=== PATIENT | female | born 1940 | race Caucasian/White ===

== ENCOUNTER → 2018-04-28 | Outpatient (CLI) | payer MEDICARE, BC ==
--- NOTE | 2018-04-28 15:06 | XR ---
EXAMINATION TYPE: XR chest 2V DATE OF EXAM: 04/28/2018 COMPARISON: 01/15/2018 HISTORY: Cough and congestion TECHNIQUE: Frontal and lateral views of the chest are obtained. FINDINGS: Linear platelike left basilar atelectasis is present near the costophrenic angle. There is no focal air space opacity, pleural effusion, or pneumothorax seen. The cardiac silhouette size is within normal limits. The osseous structures are intact. Cholecystectomy clips are noted within the right upper quadrant. There is eventration of the right hemidiaphragm incidentally seen. IMPRESSION: Minimal linear left basilar subsegmental atelectasis otherwise no acute cardiopulmonary process.
== END | disposition home or self-care (01) ==
LOC: RADXRMAIN 12:28
PROVIDERS: ATTEND Internal Medicine
DX: J98.11 Atelectasis (principal)
CPT/HCPCS: 71046

== ENCOUNTER → 2018-06-10 | Outpatient (CLI) | payer MEDICARE, BC ==
--- NOTE | 2018-06-10 14:00 | US ---
EXAMINATION TYPE: US venous doppler duplex LE BI DATE OF EXAM: 06/10/2018 1:50 PM COMPARISON: NONE CLINICAL HISTORY: hilario Lower Limb Pain M79.662 M79.661. SIDE PERFORMED: 03/30/2013 TECHNIQUE: The lower extremity deep venous system is examined utilizing real time linear array sonog amena with graded compression, doppler sonography and color-flow sonography. VESSELS IMAGED: External Iliac Vein (EIV) Common Femoral Vein Deep Femoral Vein Greater Saphenous Vein * Femoral Vein Popliteal Vein Small Saphenous Vein * Proximal Calf Veins (* superficial vessels) Right Leg: Negative for DVT Left Leg: Negative for DVT Office was notified of the results at the time of imaging. IMPRESSION: 1. Bilateral Lower extremity ultrasound negative for deep venous thrombosis.
== END ==
LOC: RADUSWWP 13:06
PROVIDERS: ATTEND Internal Medicine
DX: M79.661 Pain in right lower leg (principal); M79.662 Pain in left lower leg
CPT/HCPCS: 93970

== ENCOUNTER 2018-09-01 20:50 | Emergency (ER) | payer MEDICARE, BC ==
--- NOTE | 2018-09-01 21:39 | ED ---
Chest Pain HPI - General Chief Complaint: Recheck/Abnormal Lab/Rx Stated Complaint: High Blood Pressure Time Seen by Provider: 09/01/18 21:01 Source: patient Mode of arrival: ambulatory Limitations: no limitations - History of Present Illness Initial Comments: This patient is a 78-year-old woman who presents to be evaluated for some mild chest tightness that developed in the evening while she was cooking. Patient states that this led her to check her blood pressure which she states was in the neighborhood of 200. She took a Xanax, but as she was not immediately feeling back to normal she felt she should be evaluated here. The patient denies niyah pain. No dyspnea, diaphoresis, nausea or vomiting, palpitations, lightheadedness or syncope. Patient states that she did have a stress test about 2 years ago that she was told was okay. Patient denies any previous history of coronary artery disease. She denies significant family history of ca rdiac disease, and she does not have any history of smoking. MD Complaint: chest pain -: hour(s) Onset: other (While cooking) Pain Location: substernal Pain Radiation: none Severity: mild Quality: tightness Consistency: constant Improves With: nothing Worsens With: nothing Treatments Prior to Arrival: other (Xanax) - Related Data Home Medications Medication Instructions Recorded Confirmed ALPRAZolam [Xanax] 0.25 mg PO HS 01/16/18 09/01/18 Ascorbic Acid [Vitamin C] 1,000 mg PO DAILY 09/01/18 09/01/18 Carvedilol [Coreg] 6.25 mg PO BID 09/01/18 09/01/18 Levothyroxine Sodium [Synthroid] 25 mcg PO DAILY 09/01/18 09/01/18 Multivitamins, Thera [Multivitamin 1 tab PO DAILY 09/01/18 09/01/18 (formulary)] Naproxen Sodium [Aleve] 220 mg PO Q12H PRN 09/01/18 09/01/18 Olmesartan Medoxomil 40 mg PO DAILY@1300 09/01/18 09/01/18 Turmeric Root Extract [Turmeric] 500 mg PO DAILY 09/01/18 09/01/18 Ubidecarenone [Co Q-10] 100 mg PO DAILY 09/01/18 09/01/18 Previous Rx's Medication Instructions Recorded Aspirin 81 mg PO DAILY chew 01/17/18 Allergies Allergy/AdvReac Type Severity Reaction Status Date / Time levofloxacin [From Levaquin] Allergy Swelling Verified 09/01/18 22:52 metronidazole [From Flagyl] Allergy Swelling Verified 09/01/18 22:52 Sulfa (Sulfonamide Allergy Swelling Verified 09/01/18 22:52 Antibiotics) Review of Systems ROS Statement: Those systems with pertinent positive or pertinent negative responses have been documented in the HPI. ROS Other: All systems not noted in ROS Statement are negative. Constitutional: Denies: fever, weakness Respiratory: Denies: cough, dyspnea Cardiovascular: Reports: as per HPI, chest pain. Denies: palpitations, dyspnea on exertion, orthopnea, edema, syncope Gastrointestinal: Denies: abdominal pain, nausea, vomiting Musculoskeletal: Denies: back pain Skin: Denies: rash Neurological: Denies: headache, weakness, numbness Psychiatric: Reports: anxiety EKG Findings - EKG Comments: EKG Findings:: The comparison EKG from 01/15/2018 is unchanged. - EKG Results: EKG: interpreted by GALILEA, sinus rhythm (Rate 63 bpm), normal axis, normal ST/T - TN, Pacemaker, Normal: Myocardial infarction: inferior TN (old age indeterminate) (There is possible old inferior infarct, with Q waves in 3 and aVF.) Past Medical History Past Medical History: Hyperlipidemia, Hypertension, Thyroid Disorder Additional Past Medical History / Comment(s): irregular heartbeat, factor V,divertculitis,anxiety History of Any Multi-Drug Resistant Organisms: None Reported Past Surgical History: Section, Cholecystectomy Additional Past Surgical History / Comment(s): 2 - c sections, cataract surgery Past Anesthesia/Blood Transfusion Reactions: No Reported Reaction Past Psychological History: Anxiety Smoking Status: Never smoker Past Alcohol Use History: Rare Past Drug Use History: None Reported - Past Family History Father Family Medical History: Cancer Additional Family Medical History / Comment(s): lung and prostate cancer Mother Additional Family Medical History / Comment(s): brain tumor General Exam Limitations: no limitations General appearance: alert, in no apparent distress Head exam: Present: atraumatic, normocephalic Eye exam: Present: normal appearance. Absent: scleral icterus, conjunctival injection Respiratory exam: Present: normal lung sounds bilaterally. Absent: respiratory distress, wheezes, rales, rhonchi, stridor Cardiovascular Exam: Present: regular rate, normal rhythm, normal heart sounds. Absent: systolic murmur, diastolic murmur, rubs, gallop GI/Abdominal exam: Present: soft. Absent: distended, tenderness, guarding, rebound, rigid, mass Extremities exam: Present: normal inspection, normal capillary refill. Absent: pedal edema, calf tenderness Back exam: Present: normal inspection. Absent: CVA tenderness (R), CVA tenderness (L) Neurological exam: Present: alert Skin exam: Present: warm, dry, intact, normal color. Absent: rash Course Vital Signs 09/01/18 09/01/18 09/01/18 20:56 21:52 22:10 Temperature 98.4 F Pulse Rate 68 58 L 58 L Respiratory 18 12 13 Rate Blood Pressure 161/71 165/64 165/64 O2 Sat by Pulse 97 97 Oximetry 09/01/18 09/01/18 09/01/18 22:20 22:50 23:10 Temperature Pulse Rate 59 L 72 62 Respiratory 15 16 16 Rate Blood Pressure 138/67 129/86 132/80 O2 Sat by Pulse 95 96 97 Oximetry Disposition Clinical Impression: Chest pain Disposition: HOME SELF-CARE Condition: Good Instructions (If sedation given, give patient instructions): Chest Pain (ED) Is patient prescribed a controlled substance at d/c from ED?: No Referrals: Héctor Purcell MD [Primary Care Provider] - 1-2 days
[2018-09-01 22:03] LABS: Basophils # (A) 0.1 k/uL (0-0.2); Basophils % (A) 1 %; Eosinophils # (A) 0.1 k/uL (0-0.7); Eosinophils % (A) 3 %; HCT 36.7 % (34.0-46.0); HGB 12.2 gm/dL (11.4-16.0); Lymphocytes # (A) 1.8 k/uL (1.0-4.8); Lymphocytes % (A) 30 %; MCH 31.2 pg (25.0-35.0); MCHC 33.3 g/dL (31.0-37.0); MCV 93.7 fL (80.0-100.0); Mean Platelet Volume 6.6; Monocytes # (A) 0.3 k/uL (0-1.0); Monocytes % (A) 5 %; Neutrophils # (A) 3.4 k/uL (1.3-7.7); Neutrophils % (A) 58 %; Platelet Count 269 k/uL (150-450); RBC 3.92 m/uL (3.80-5.40); RDW 13.1 % (11.5-15.5); WBC 5.9 k/uL (3.8-10.6)
--- NOTE | 2018-09-01 22:08 | XR ---
EXAMINATION: XR chest 2V DATE AND TIME: 09/01/2018 9:57 PM CLINICAL INDICATION: Chest Pain TECHNIQUE: Departmental protocol COMPARISON: 04/28/2018 FINDINGS: The lungs are clear. The pleural spaces are negative. The cardiac silhouette is mildly enlarged. The remainder of the mediastinal silhouette is unremarkabl e. The skeletal structures and soft tissues are negative for acute findings. IMPRESSION: NO ACUTE PROCESS.
[2018-09-01 22:21] LABS: Calcium 9.3 mg/dL (8.4-10.2); Potassium 3.8 mmol/L (3.5-5.1); Total Bilirubin 0.4 mg/dL (0.2-1.3); Total Protein 6.7 g/dL (6.3-8.2)
--- NOTE | 2018-09-01 23:11 | CT ---
EXAM: CT Angiography Chest With Intravenous Contrast CLINICAL HISTORY: Pain TECHNIQUE: Axial computed tomographic angiography images of the chest with intravenous contrast using pulmonary embolism protocol. CTDI is 0.085, 0. 085, 1.5, 1.5, 1.5, 6.4 mGy and DLP is 246.8 mGy-cm. This CT exam was performed using one or more of the following dose reduction techniques: automated exposure control, adjustment of the mA and/or kV according to patient size, and/or use of iterative reconstruction technique. MIP reconstructed images were created and reviewed. COMPARISON: No relevant prior studies available. FINDINGS: Pulmonary arteries: Unremarkable. No pulmonary embolism. Aorta: No acute findings. No thoracic aortic aneurysm. Lungs: Dependent atelectasis. No mass. Pleural space: Unremarkable. No significant effusion. No pneumothorax. Heart: Coronary artery calcifications. No significant pericardial effusion. No evidence of RV dysfunction. Bones/joints: No acute fracture. No dislocation. Soft tissues: Unremarkable. Lymph nodes: Unremarkable. No enlarged lymph nodes. IMPRESSION: No acute findings.
--- NOTE | 2018-09-02 00:12 | US ---
EXAM: US Duplex Left Lower Extremity Veins CLINICAL HISTORY: Pain TECHNIQUE: Real-time duplex ultrasound scan of the left lower extremity veins integrating B-mode two-dimensional vascular structure, Doppler spectral analysis, color flow Doppler imaging and compression. COMPARISON: No relevant prior studies available. FINDINGS: Deep veins: Unremarkable. No DVT in the visualized common femoral, femoral, proximal deep femoral or popliteal veins. The veins demonstrate normal color flow, are normally compressible, with normal phasic flow and/or augmentation response. Superficial veins: Unremarkable. No thrombus in the visualized great saphenous vein. Soft tissues: Holden cyst within the left popliteal fossa measuring 4.2 x 2.2 x 1.3 cm. IMPRESSION: 1. No evidence of deep vein thrombosis. 2. Holden cyst within the left popliteal fossa measuring 4.2 x 2.2 x 1.3 cm.
[2018-09-02 00:32] VITALS: BP 136/65; PULSE 58; RESP 14; TEMP 98
== END 2018-09-02 00:29 | disposition home or self-care (01) ==
LOC: EC 20:50
DX: R07.89 Other chest pain (principal); I10 Essential (primary) hypertension; E07.9 Disorder of thyroid, unspecified; F41.9 Anxiety disorder, unspecified; Z88.1 Allergy status to other antibiotic agents; Z88.2 Allergy status to sulfonamides; Z79.890 Hormone replacement therapy; Z79.899 Other long term (current) drug therapy
CPT/HCPCS: 36415; 93005; 85379; 80053; 83735; 84484; 85025; 71046; 93971; 71275; 99284; Q9967

== ENCOUNTER 2018-10-17 13:19 | Emergency (ER) | payer MEDICARE, BC ==
[2018-10-17 13:24] VITALS: RESP 18
--- NOTE | 2018-10-17 13:44 | ED ---
Lower Extremity Injury HPI - General Chief Complaint: Extremity Injury, Lower Stated Complaint: lt foot toe injury Time Seen by Provider: 10/17/18 13:26 Source: patient, RN notes reviewed Mode of arrival: ambulatory Limitations: no limitations - History of Present Illness Initial Comments: This is a 78-year-old female presents emergency Department with chief complaint of left foot toe injury. Patient states that she caught her foot in her family states that she hobbled a few times and twisted her toe. Patient states is so painful today. Patient states her some bruising noted of the second digit which she also has pain over the third digit. Denies any prior fractures no paresthesias denies any proximal forearm ankle tenderness. - Related Data Home Medications Medication Instructions Recorded Confirmed ALPRAZolam [Xanax] 0.25 mg PO HS 01/16/18 09/01/18 Ascorbic Acid [Vitamin C] 1,000 mg PO DAILY 09/01/18 09/01/18 Carvedilol [Coreg] 6.25 mg PO BID 09/01/18 09/01/18 Levothyroxine Sodium [Synthroid] 25 mcg PO DAILY 09/01/18 09/01/18 Multivitamins, Thera [Multivitamin 1 tab PO DAILY 09/01/18 09/01/18 (formulary)] Naproxen Sodium [Aleve] 220 mg PO Q12H PRN 09/01/18 09/01/18 Olmesartan Medoxomil 40 mg PO DAILY@1300 09/01/18 09/01/18 Turmeric Root Extract [Turmeric] 500 mg PO DAILY 09/01/18 09/01/18 Ubidecarenone [Co Q-10] 100 mg PO DAILY 09/01/18 09/01/18 Previous Rx's Medication Instructions Recorded Aspirin 81 mg PO DAILY chew 01/17/18 Allergies Allergy/AdvReac Type Severity Reaction Status Date / Time levofloxacin [From Levaquin] Allergy Swelling Verified 10/17/18 13:22 metronidazole [From Flagyl] Allergy Swelling Verified 10/17/18 13:22 Sulfa (Sulfonamide Allergy Swelling Verified 10/17/18 13:22 Antibiotics) Review of Systems ROS Statement: Those systems with pertinent positive or pertinent negative responses have been documented in the HPI. ROS Other: All systems not noted in ROS Statement are negative. Past Medical History Past Medical History: Hyperlipidemia, Hypertension, Thyroid Disorder Additional Past Medical History / Comment(s): irregular heartbeat, factor V,divertculitis,anxiety History of Any Multi-Drug Resistant Organisms: None Reported Past Surgical History: Section, Cholecystectomy Additional Past Surgical History / Comment(s): 2 - c sections, cataract surgery Past Anesthesia/Blood Transfusion Reactions: No Reported Reaction Past Psychological History: Anxiety Smoking Status: Never smoker Past Alcohol Use History: Rare Past Drug Use History: None Reported - Past Family History Father Family Medical History: Cancer Additional Family Medical History / Comment(s): lung and prostate cancer Mother Additional Family Medical History / Comment(s): brain tumor General Exam Limitations: no limitations General appearance: alert, in no apparent distress Head exam: Present: atraumatic, normocephalic, normal inspection Neck exam: Present: normal inspection, full ROM. Absent: tenderness, meningismus, lymphadenopathy Respiratory exam: Present: normal lung sounds bilaterally. Absent: respiratory distress, wheezes, rales, rhonchi, stridor Cardiovascular Exam: Present: regular rate, normal rhythm, normal heart sounds. Absent: systolic murmur, diastolic murmur, rubs, gallop, clicks Extremities exam: Present: other (Left foot there is tenderness the mid foot but primary tenderness over the second digit with ecchymosis noted neurovascular intact there is no ankle tenderness no proximal tib-fib tenderness) Skin exam: Present: warm, dry, intact, normal color. Absent: rash Course Vital Signs 10/17/18 13:22 Temperature 97.9 F Pulse Rate 67 Respiratory 18 Rate Blood Pressure 134/62 O2 Sat by Pulse 99 Oximetry Medical Decision Making - Medical Decision Making 78-year-old female presented for left foot toe injury. X-rays were obtained no acute fracture. Patient has ongoing sprain. Patient continued conservative treatment return parameters were discussed. Disposition Clinical Impression: Sprain of toe, second, left Disposition: HOME SELF-CARE Condition: Stable Instructions (If sedation given, give patient instructions): Foot Sprain (ED) Additional Instructions: Please return to the Emergency Department if symptoms worsen or any other concerns. Is patient prescribed a controlled substance at d/c from ED?: No Referrals: Héctor Purcell MD [Primary Care Provider] - 1-2 days Time of Disposition: 14:18
--- NOTE | 2018-10-17 14:07 | XR ---
EXAMINATION TYPE: XR foot complete LT , 3 VIEWS DATE OF EXAM ORDERED: 10/17/2018 HISTORY: Pain. COMPARISON: None. FINDINGS: No fracture or dislocation is seen. Note is made of a plantar calcaneal spur. IMPRESSION: NO ACUTE OSSEOUS LESION.
[2018-10-17 14:36] VITALS: BP 132/74; PULSE 64; TEMP 98.9
== END 2018-10-17 14:35 | disposition home or self-care (01) ==
LOC: EC 13:19
DX: S93.505A Unspecified sprain of left lesser toe(s), initial encounter (principal); F41.9 Anxiety disorder, unspecified; I10 Essential (primary) hypertension; E07.9 Disorder of thyroid, unspecified; Z79.02 Long term (current) use of antithrombotics/antiplatelets; Z79.890 Hormone replacement therapy; Z79.899 Other long term (current) drug therapy; Z88.1 Allergy status to other antibiotic agents; Z88.2 Allergy status to sulfonamides; X50.1XXA Overexertion from prolonged static or awkward postures, initial encounter
CPT/HCPCS: 99283

== ENCOUNTER 2018-10-20 10:54 | Emergency (ER) | payer MEDICARE, BC ==
[2018-10-20 10:59] VITALS: BP 112/57; PULSE 58; RESP 18; TEMP 98.2
[2018-10-20] MEDS ORDERED: ACETAMINOPHEN TAB 325 MG TAB PO STA (11:06)
--- NOTE | 2018-10-20 11:09 | ED ---
General Adult HPI - General Chief complaint: Fall Stated complaint: rt arm injury Time Seen by Provider: 10/20/18 11:02 Source: patient, RN notes reviewed Mode of arrival: ambulatory Limitations: no limitations - History of Present Illness Initial comments: 78-year-old female presents to the emergency department for a chief complaint of right arm pain. Patient states that she was gardening yesterday. States she went to turn and tripped on a metal lip. States she fell on her right arm. Patient states she has pain from her shoulder down to her wrist. States it does hurt more with movement. Denies any pain in her right hand. Denies hitting her head. Denies any other complaints at this time. Does state she has to leave in an hour for a meeting. Patient has no other complaints at this time including shortness of breath, chest pain, abdominal pain, nausea or vomiting, headache, or visual changes. - Related Data Home Medications Medication Instructions Recorded Confirmed ALPRAZolam [Xanax] 0.25 mg PO HS 01/16/18 09/01/18 Ascorbic Acid [Vitamin C] 1,000 mg PO DAILY 09/01/18 09/01/18 Carvedilol [Coreg] 6.25 mg PO BID 09/01/18 09/01/18 Levothyroxine Sodium [Synthroid] 25 mcg PO DAILY 09/01/18 09/01/18 Multivitamins, Thera [Multivitamin 1 tab PO DAILY 09/01/18 09/01/18 (formulary)] Olmesartan Medoxomil 40 mg PO DAILY@1300 09/01/18 09/01/18 Turmeric Root Extract [Turmeric] 500 mg PO DAILY 09/01/18 09/01/18 Ubidecarenone [Co Q-10] 100 mg PO DAILY 09/01/18 09/01/18 Previous Rx's Medication Instructions Recorded Aspirin 81 mg PO DAILY chew 01/17/18 Allergies Allergy/AdvReac Type Severity Reaction Status Date / Time levofloxacin [From Levaquin] Allergy Swelling Verified 10/20/18 11:31 metronidazole [From Flagyl] Allergy Swelling Verified 10/20/18 11:31 Sulfa (Sulfonamide Allergy Swelling Verified 10/20/18 11:31 Antibiotics) Review of Systems ROS Statement: Those systems with pertinent positive or pertinent negative responses have been documented in the HPI. ROS Other: All systems not noted in ROS Statement are negative. Past Medical History Past Medical History: Hyperlipidemia, Hypertension, Thyroid Disorder Additional Past Medical History / Comment(s): irregular heartbeat, factor V,divertculitis,anxiety History of Any Multi-Drug Resistant Organisms: None Reported Past Surgical History: Section, Cholecystectomy Additional Past Surgical History / Comment(s): 2 - c sections, cataract surgery Past Anesthesia/Blood Transfusion Reactions: No Reported Reaction Past Psychological History: Anxiety Smoking Status: Never smoker Past Alcohol Use History: Rare Past Drug Use History: None Reported - Past Family History Father Family Medical History: Cancer Additional Family Medical History / Comment(s): lung and prostate cancer Mother Additional Family Medical History / Comment(s): brain tumor General Exam Limitations: no limitations General appearance: alert, in no apparent distress Head exam: Present: atraumatic, normocephalic, normal inspection Eye exam: Present: normal appearance, PERRL, EOMI. Absent: scleral icterus, conjunctival injection, periorbital swelling ENT exam: Present: normal exam, mucous membranes moist Neck exam: Present: normal inspection, full ROM. Absent: tenderness, meningismus, lymphadenopathy Respiratory exam: Present: normal lung sounds bilaterally. Absent: respiratory distress, wheezes, rales, rhonchi, stridor Cardiovascular Exam: Present: regular rate, normal rhythm, normal heart sounds. Absent: systolic murmur, diastolic murmur, rubs, gallop, clicks Extremities exam: Present: full ROM (full ROM of the right elbow, shoulder and wrist), normal capillary refill (cap refill < 2 seconds, DP pulse 2+). Absent: tenderness, pedal edema, joint swelling (no significant edema or ecchymosis present.), calf tenderness Course Vital Signs 10/20/18 10:57 Temperature 98.2 F Pulse Rate 58 L Respiratory 18 Rate Blood Pressure 112/57 O2 Sat by Pulse 96 Oximetry Medical Decision Making - Medical Decision Making 78 year old female presents for right arm pain after a fall yesterday. Pain is generalized in nature. No significant right arm tenderness. X-ray shows no acute fracture or dislocation seen in the right radius ulna or humerus. Patient likely has a soft tissue injury. However did discuss follow-up with primary care and orthopedics if symptoms are not improving. Discussed returning here if she has any worsening symptoms. Disposition Clinical Impression: Arm pain, right Disposition: HOME SELF-CARE Condition: Good Instructions (If sedation given, give patient instructions): Arm Pain (ED) Additional Instructions: Please take Motrin and Tylenol for pain. Follow up with primary care in 1-2 days. Return here to the emergency department if you have any worsening symptoms. Is patient prescribed a controlled substance at d/c from ED?: No Referrals: Héctor Purcell MD [Primary Care Provider] - 1-2 days Filippo Leal DO [Doctor of Osteopathic Medicine] - 1-2 days Time of Disposition: 11:55
--- NOTE | 2018-10-20 11:29 | XR ---
EXAMINATION TYPE: XR forearm RT, XR humerus RT DATE OF EXAM: 10/20/2018 CLINICAL HISTORY: Fall with right arm pain. TECHNIQUE: Two views of the right forearm are obtained. 2 views of the right humerus were also obtain ed. COMPARISON: None. FINDINGS: There is no acute fracture or dislocation seen in the right radius or ulna. Olecranon enth esophyte is noted as well as small osteophyte of the coronoid process. The right elbow and wrist join ts appear within normal limits. The overlying soft tissue appears within normal limits. There is no evidence or acute fracture or dislocation of the right humerus. No joint effusion is seen within the elbow. There is diffuse osseous demineralization throughout both examinations. Moderate acromioclavic ular arthropathy is seen. Old healed well-corticated supracondylar fracture is noted. IMPRESSION: There is no acute fracture or dislocation seen in the right radius, ulna, or humerus.
== END 2018-10-20 11:57 | disposition home or self-care (01) ==
LOC: EC 10:54
DX: M79.601 Pain in right arm (principal); I10 Essential (primary) hypertension; E07.9 Disorder of thyroid, unspecified; F41.9 Anxiety disorder, unspecified; Z79.890 Hormone replacement therapy; Z79.899 Other long term (current) drug therapy; Z88.1 Allergy status to other antibiotic agents; Z88.2 Allergy status to sulfonamides; W18.09XA Striking against other object with subsequent fall, initial encounter; Y93.H2 Activity, gardening and landscaping
CPT/HCPCS: 99283

== ENCOUNTER 2018-12-24 14:49 | Emergency (ER) | payer MEDICARE, BC ==
[2018-12-24 14:53] VITALS: RESP 18
[2018-12-24] MEDS ORDERED: SODIUM CHLORIDE 0.9% 1,000 ML IV STA ×2 (15:05)
--- NOTE | 2018-12-24 15:09 | ED ---
Extremity Problem HPI - General Chief complaint: Extremity Problem,Nontraumatic Stated complaint: Possible blood clot Time Seen by Provider: 12/24/18 14:55 Source: patient, RN notes reviewed, old records reviewed Mode of arrival: ambulatory Limitations: no limitations - History of Present Illness Initial comments: Patient is a 78-year-old female presents emergency department today for evaluation with complaints of bilateral posterior calf pain and knee pain. Patient ports that having pain for the past 3 days. Patient states that today she started about some chest pain and shortness of breath. Patient states that she has had a history of factor V disorder. Patient states she's had no history of blood clots or any disease. She is not on any blood thinners. Patient states she's had no history of immobility. She is a nonsmoker. Patient states that she feels like she has pain with taking a deep breath, can't get a full breath. - Related Data Home Medications Medication Instructions Recorded Confirmed ALPRAZolam [Xanax] 0.25 mg PO HS 01/16/18 10/20/18 Ascorbic Acid [Vitamin C] 1,000 mg PO DAILY 09/01/18 10/20/18 Carvedilol [Coreg] 6.25 mg PO BID 09/01/18 10/20/18 Levothyroxine Sodium [Synthroid] 25 mcg PO DAILY 09/01/18 10/20/18 Multivitamins, Thera [Multivitamin 1 tab PO DAILY 09/01/18 10/20/18 (formulary)] Olmesartan Medoxomil 40 mg PO DAILY@1300 09/01/18 10/20/18 Turmeric Root Extract [Turmeric] 500 mg PO DAILY 09/01/18 10/20/18 Ubidecarenone [Co Q-10] 100 mg PO DAILY 09/01/18 10/20/18 Previous Rx's Medication Instructions Recorded Aspirin 81 mg PO DAILY chew 01/17/18 Allergies Allergy/AdvReac Type Severity Reaction Status Date / Time levofloxacin [From Levaquin] Allergy Swelling Verified 12/24/18 14:53 metronidazole [From Flagyl] Allergy Swelling Verified 12/24/18 14:53 Sulfa (Sulfonamide Allergy Swelling Verified 12/24/18 14:53 Antibiotics) Review of Systems ROS Statement: Those systems with pertinent positive or pertinent negative responses have been documented in the HPI. ROS Other: All systems not noted in ROS Statement are negative. Past Medical History Past Medical History: Hyperlipidemia, Hypertension, Thyroid Disorder Additional Past Medical History / Comment(s): irregular heartbeat, factor V,divertculitis,anxiety History of Any Multi-Drug Resistant Organisms: None Reported Past Surgical History: Section, Cholecystectomy Additional Past Surgical History / Comment(s): 2 - c sections, cataract surgery Past Anesthesia/Blood Transfusion Reactions: No Reported Reaction Past Psychological History: Anxiety Smoking Status: Never smoker Past Alcohol Use History: Rare Past Drug Use History: None Reported - Past Family History Father Family Medical History: Cancer Additional Family Medical History / Comment(s): lung and prostate cancer Mother Additional Family Medical History / Comment(s): brain tumor General Exam - General Exam Comments Initial Comments: Is an 78-year-old female. No distress. Limitations: no limitations General appearance: alert, in no apparent distress Head exam: Present: atraumatic, normocephalic, normal inspection Eye exam: Present: normal appearance ENT exam: Present: normal exam, mucous membranes moist Neck exam: Present: normal inspection. Absent: tenderness, meningismus, lymphadenopathy Respiratory exam: Present: normal lung sounds bilaterally. Absent: respiratory distress, wheezes, rales, rhonchi, stridor Cardiovascular Exam: Present: regular rate, normal rhythm, normal heart sounds. Absent: systolic murmur, diastolic murmur, rubs, gallop, clicks GI/Abdominal exam: Present: soft, normal bowel sounds. Absent: distended, tenderness, guarding, rebound, rigid Extremities exam: Present: normal inspection, other (Patient has varicose in the bilateral lower extremities. Patient has evidence of swelling over the medial popliteal fossa.) Back exam: Present: normal inspection Neurological exam: Present: alert, oriented X3, CN II-XII intact Psychiatric exam: Present: normal affect, normal mood Skin exam: Present: warm, dry, intact, normal color. Absent: rash Course Vital Signs 12/24/18 12/24/18 14:51 16:59 Temperature 98.3 F Pulse Rate 65 73 Respiratory 18 18 Rate Blood Pressure 152/62 143/72 O2 Sat by Pulse 99 98 Oximetry Medical Decision Making - Medical Decision Making This is a 78-year-old female. She presents today with complaints of bilateral lower extremity swelling. She is concerned of possible DVT. On questioning she stated she did have some atypical discomfort description of chest pain, pleuritic in with breaths. Patient's EKG shows no acute changes. His troponin is negative. She did have a positive d-dimer. Chest x-ray was negative for any acute process. Vital signs are stable. 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 No evidence of DVT. CT angios. Chest was negative for PE. At this time I discussed admission for atypical chest pain and further workup. Patient that she would prefer pulled out patiently with her primary care physician. I discussed going up with orthopedic for Holden cyst. I'll cautions were answered return parameters were discussed. - Lab Data Result diagrams: 12/24/18 15:37 12/24/18 15:37 Lab Results 12/24/18 12/24/18 12/24/18 Range/Units 15:37 15:37 15:37 WBC 6.3 (3.8-10.6) k/uL RBC 3.85 (3.80-5.40) m/uL Hgb 12.1 (11.4-16.0) gm/dL Hct 36.2 (34.0-46.0) % MCV 94.0 (80.0-100.0) fL MCH 31.3 (25.0-35.0) pg MCHC 33.3 (31.0-37.0) g/dL RDW 13.7 (11.5-15.5) % Plt Count 239 (150-450) k/uL Neutrophils % 61 % Lymphocytes % 26 % Monocytes % 7 % Eosinophils % 2 % Basophils % 1 % Neutrophils # 3.8 (1.3-7.7) k/uL Lymphocytes # 1.7 (1.0-4.8) k/uL Monocytes # 0.4 (0-1.0) k/uL Eosinophils # 0.2 (0-0.7) k/uL Basophils # 0.1 (0-0.2) k/uL PT 9.9 (9.0-12.0) sec INR 0.9 (<1.2) APTT 24.8 (22.0-30.0) sec D-Dimer 1.99 H (<0.60) mg/L FEU Sodium 137 (137-145) mmol/L Potassium 4.0 (3.5-5.1) mmol/L Chloride 102 (98-107) mmol/L Carbon Dioxide 27 (22-30) mmol/L Anion Gap 8 mmol/L BUN 20 H (7-17) mg/dL Creatinine 1.05 H (0.52-1.04) mg/dL Est GFR (CKD-EPI)AfAm 60 (>60 ml/min/1.73 sqM) Est GFR (CKD-EPI)NonAf 52 (>60 ml/min/1.73 sqM) Glucose 90 (74-99) mg/dL Calcium 9.2 (8.4-10.2) mg/dL Magnesium 1.9 (1.6-2.3) mg/dL Total Bilirubin 0.5 (0.2-1.3) mg/dL AST 27 (14-36) U/L ALT 25 (9-52) U/L Alkaline Phosphatase 49 (38-126) U/L Troponin I (0.000-0.034) ng/mL NT-Pro-B Natriuret Pep pg/mL Total Protein 7.3 (6.3-8.2) g/dL Albumin 4.2 (3.5-5.0) g/dL Urine Color Urine Appearance (Clear) Urine pH (5.0-8.0) Ur Specific Whitman (1.001-1.035) Urine Protein (Negative) Urine Glucose (UA) (Negative) Urine Ketones (Negative) Urine Blood (Negative) Urine Nitrite (Negative) Urine Bilirubin (Negative) Urine Urobilinogen (<2.0) mg/dL Ur Leukocyte Esterase (Negative) 12/24/18 12/24/18 12/24/18 Range/Units 15:37 15:37 15:37 WBC (3.8-10.6) k/uL RBC (3.80-5.40) m/uL Hgb (11.4-16.0) gm/dL Hct (34.0-46.0) % MCV (80.0-100.0) fL MCH (25.0-35.0) pg MCHC (31.0-37.0) g/dL RDW (11.5-15.5) % Plt Count (150-450) k/uL Neutrophils % % Lymphocytes % % Monocytes % % Eosinophils % % Basophils % % Neutrophils # (1.3-7.7) k/uL Lymphocytes # (1.0-4.8) k/uL Monocytes # (0-1.0) k/uL Eosinophils # (0-0.7) k/uL Basophils # (0-0.2) k/uL PT (9.0-12.0) sec INR (<1.2) APTT (22.0-30.0) sec D-Dimer (<0.60) mg/L FEU Sodium (137-145) mmol/L Potassium (3.5-5.1) mmol/L Chloride (98-107) mmol/L Carbon Dioxide (22-30) mmol/L Anion Gap mmol/L BUN (7-17) mg/dL Creatinine (0.52-1.04) mg/dL Est GFR (CKD-EPI)AfAm (>60 ml/min/1.73 sqM) Est GFR (CKD-EPI)NonAf (>60 ml/min/1.73 sqM) Glucose (74-99) mg/dL Calcium (8.4-10.2) mg/dL Magnesium (1.6-2.3) mg/dL Total Bilirubin (0.2-1.3) mg/dL AST (14-36) U/L ALT (9-52) U/L Alkaline Phosphatase (38-126) U/L Troponin I <0.012 (0.000-0.034) ng/mL NT-Pro-B Natriuret Pep 56 pg/mL Total Protein (6.3-8.2) g/dL Albumin (3.5-5.0) g/dL Urine Color Colorless Urine Appearance Clear (Clear) Urine pH 5.5 (5.0-8.0) Ur Specific Whitman 1.003 (1.001-1.035) Urine Protein Negative (Negative) Urine Glucose (UA) Negative (Negative) Urine Ketones Negative (Negative) Urine Blood Negative (Negative) Urine Nitrite Negative (Negative) Urine Bilirubin Negative (Negative) Urine Urobilinogen <2.0 (<2.0) mg/dL Ur Leukocyte Esterase Negative (Negative) 12/24/18 16:26 EKG shows sinus bradycardia cardiac, inferior infarct age undetermined. Abnormal EKG. Ventricular rate of 58 bpm. IN interval is 166 ms. QRS duration is 80 ms. QT QTc is 400/392 ms. - Radiology Data Radiology results: report reviewed This x-rays negative for any acute cardio pulmonary process. Right leg is negative for DVT. Evidence of Holden cyst measuring 5.4 x 1.8 x 3.7 cm. Left leg is negative for DVT but there is evidence of a Holden cyst measuring 5.1 x 1.[address] chest was negative for PE. Disposition Clinical Impression: Atypical chest pain, Cyst, Holden's knee Disposition: HOME SELF-CARE Condition: Good Instructions (If sedation given, give patient instructions): Bakers Cyst (ED) Additional Instructions: Patient advised to take Motrin Tylenol for pain. Patient should rest ice and elevate the knees. Patient should follow-up with orthopedic regards to Holden's cyst. Follow-up with her primary care physician in regards to a typical chest pain or further evaluation by cardiology. Is patient prescribed a controlled substance at d/c from ED?: No Referrals: Héctor Purcell MD [Primary Care Provider] - 1-2 days Time of Disposition: 17:56
[2018-12-24 15:48] LABS: Appearance,Urine Clear (Clear); Basophils # (A) 0.1 k/uL (0-0.2); Basophils % (A) 1 %; Bilirubin,Urine Negative (Negative); Blood,Urine Negative (Negative); Color,Urine Colorless; Eosinophils # (A) 0.2 k/uL (0-0.7); Eosinophils % (A) 2 %; Glucose,Urine (UA) Negative (Negative); HCT 36.2 % (34.0-46.0); HGB 12.1 gm/dL (11.4-16.0); Ketones,Urine Negative (Negative); Leukocyte Esterase,Urine Negative (Negative); Lymphocytes # (A) 1.7 k/uL (1.0-4.8); Lymphocytes % (A) 26 %; MCH 31.3 pg (25.0-35.0); MCHC 33.3 g/dL (31.0-37.0); Mean Platelet Volume 6.5; Monocytes # (A) 0.4 k/uL (0-1.0); Monocytes % (A) 7 %; Neutrophils # (A) 3.8 k/uL (1.3-7.7); Neutrophils % (A) 61 %; Nitrite,Urine Negative (Negative); PH, Urine 5.5 (5.0-8.0); Platelet Count 239 k/uL (150-450); Protein,Urine Negative (Negative); RBC 3.85 m/uL (3.80-5.40); RDW 13.7 % (11.5-15.5); Specific Gravity,Urine 1.003 (1.001-1.035); Urobilinogen,Urine <2.0 mg/dL (<2.0); WBC 6.3 k/uL (3.8-10.6)
[2018-12-24 15:56] LABS: Albumin 4.2 g/dL (3.5-5.0); Calcium 9.2 mg/dL (8.4-10.2); Magnesium 1.9 mg/dL (1.6-2.3); Total Bilirubin 0.5 mg/dL (0.2-1.3); Total Protein 7.3 g/dL (6.3-8.2)
--- NOTE | 2018-12-24 15:58 | XR ---
EXAMINATION TYPE: XR chest 2V DATE OF EXAM: 12/24/2018 COMPARISON: 09/01/2018 HISTORY: Chest pain TECHNIQUE: Frontal and lateral views of the chest are obtained. FINDINGS: There is no focal air space opacity, pleural effusion, or pneumothorax seen. The cardiac silhouette size is within normal limits. The osseous structures are intact. Cholecystectomy clips a re seen. IMPRESSION: No acute cardiopulmonary process.
[2018-12-24 16:02] LABS: INR 0.9 (<1.2); Partial Thromboplastin Time 24.8 sec (22.0-30.0); Prothrombin Time 9.9 sec (9.0-12.0)
[2018-12-24 16:17] LABS: D-Dimer 1.99 mg/L FEU (<0.60)
--- NOTE | 2018-12-24 16:31 | US ---
EXAMINATION TYPE: US venous doppler duplex LE BI DATE OF EXAM: 12/24/2018 4:25 PM COMPARISON: Bilateral venous ultrasound June 10, 2018 CLINICAL HISTORY: Pain. Pt states bilateral leg pain and swelling SIDE PERFORMED: Bilateral TECHNIQUE: The lower extremity deep venous system is examined utilizing real time linear array sonog amena with graded compression, doppler sonography and color-flow sonography. VESSELS IMAGED: External Iliac Vein (EIV) Common Femoral Vein Deep Femoral Vein Greater Saphenous Vein * Femoral Vein Popliteal Vein Small Saphenous Vein * Proximal Calf Veins (* superficial vessels) Right Leg: Negative for DVT, Holden's Cyst= 5.4 x 1.8 x 3.7 cm Left Leg: Negative for DVT, Holden's Cyst= 5.1 x 1.7 x 2.8 cm Grayscale, color doppler, spectral doppler imaging performed of the deep veins of the bilateral lower extremities. There is normal flow, compressibility, vascular waveforms. IMPRESSION: No ultrasound evidence for acute DVT in either lower extremity. Documentation of moderat e-sized bilateral popliteal cysts on current study incidentally noted.
--- NOTE | 2018-12-24 17:15 | CT ---
EXAMINATION TYPE: CT chest angio for PE DATE OF EXAM: 12/24/2018 COMPARISON: 09/01/2018 HISTORY: Chest tightness, swollen legs bilaterally CT DLP: 237.3 mGycm Automated exposure control for dose reduction was used. CONTRAST: CT Chest for pulmonary embolism performed with with IV Contrast, patient injected with 80 mL of Isovu e 370. There are 3-D post processed images. FINDINGS: There is coarse interstitial infiltrate in the mid and lower lung foreman. Heart is enlarged. There is no pericardial effusion. Thoracic aorta is intact without evidence of aneurysm or dissection. The as cending aorta measures 3.2 cm. There is 1.5 cm mediastinal lymph node. There are no hilar masses. I see no filling defects in the pulmonary arteries. The bony thorax is intact. I see no bony destruct melanie process. There is a rounded density within the body of the stomach also present on old CT scan an d in same location but slightly smaller. Significance is not clear. This measures 1.2 cm and could be medication. IMPRESSION: No evidence of pulmonary embolism. No adverse change compared to old exam.
[2018-12-24 18:17] VITALS: BP 156/75; PULSE 70; TEMP 98.5
== END 2018-12-24 18:17 | disposition home or self-care (01) ==
LOC: EC 14:49
DX: M71.22 Synovial cyst of popliteal space [Baker], left knee (principal); M71.21 Synovial cyst of popliteal space [Baker], right knee; R07.89 Other chest pain; R06.02 Shortness of breath; I83.93 Asymptomatic varicose veins of bilateral lower extremities; I10 Essential (primary) hypertension; E07.9 Disorder of thyroid, unspecified; F41.9 Anxiety disorder, unspecified; Z88.1 Allergy status to other antibiotic agents; Z88.2 Allergy status to sulfonamides; Z79.890 Hormone replacement therapy; Z79.899 Other long term (current) drug therapy; Z86.2 Personal history of diseases of the blood and blood-forming organs and certain disorders involving the immune mechanism; Z80.1 Family history of malignant neoplasm of trachea, bronchus and lung
CPT/HCPCS: 36415; 93005; 85379; 83880; 80053; 83735; 84484; 85025; 85610; 85730; 81003; 71046; 93970; 71275; 99284; 96360; 96361 ×2; Q9967

== ENCOUNTER 2019-01-29 12:50 | Emergency (ER) | payer MEDICARE, BC ==
[2019-01-29 13:05] VITALS: BP 147/68; PULSE 66; RESP 18; TEMP 98
--- NOTE | 2019-01-29 13:46 | XR ---
EXAMINATION TYPE: XR wrist complete RT , 4 VIEWS DATE OF EXAM ORDERED: 01/29/2019 HISTORY: pain. COMPARISON: None. FINDINGS: A well ossified bony fragment is noted posterior to the lunate. This may relate to previou s trauma. No acute fracture or dislocation is seen. There are degenerative changes present in the fir st carpal metacarpal joint as well as in the interphalangeal joint of IMPRESSION: 1. NO ACUTE OSSEOUS LESION. 2. EVIDENCE OF PREVIOUS TRAUMA. 3. DEGENERATIVE CHANGE.
== END 2019-01-29 13:34 | disposition left against medical advice (07) ==
LOC: EC 12:50
DX: S69.90XA Unspecified injury of unspecified wrist, hand and finger(s), initial encounter (principal); X58.XXXA Exposure to other specified factors, initial encounter; Z53.21 Procedure and treatment not carried out due to patient leaving prior to being seen by health care provider
CPT/HCPCS: 99499

== ENCOUNTER → 2019-03-02 | Outpatient (CLI) | payer MEDICARE, BC ==
--- NOTE | 2019-03-02 16:19 | MR ---
EXAMINATION TYPE: MR knee LT wo con DATE OF EXAM: 03/02/2019 COMPARISON: None HISTORY: Pain in left knee TECHNIQUE: Multiplanar, multisequence imaging of the left knee is performed without IV contrast. FINDINGS: MEDIAL MENISCUS: The medial meniscus is attenuated. Some linear increased signal present within the p osterior horn extending into the attenuated by, findings may be indicative of a chronic tear LATERAL MENISCUS: There is some increased signal present within the posterior horn of the lateral men iscus towards the root however no definite tear identified. CRUCIATE LIGAMENTS: The posterior cruciate ligament is intact and unremarkable. There is abnormal inc reased signal involving the anterior cruciate ligament. There may be intrasubstance ganglion, a parti al tear. COLLATERAL LIGAMENTS: The medial collateral ligament and lateral collateral ligament complex are inta ct and unremarkable. EXTENSOR MECHANISM: Visualized quadriceps and patellar tendons are intact. EFFUSION: Small suprapatellar joint effusion. POPLITEAL CYST: Large semimembranosus gastrocnemius cyst present measuring approximately 5.5 x 2.1 x 1.8 cm. TRICOMPARTMENT SPACES: Joint space loss is greatest in the medial compartment. CARTILAGE: Grade 3 to grade IV chondromalacia in the medial compartment. Grade 2 to grade III chondro malacia in the lateral compartment. BONE MARROW SIGNAL: Reactive marrow signal changes are suspected in the proximal tibia medially as we ll as the medial femoral condyle. OTHER: Subcutaneous fat shows varicosity medially. IMPRESSION: Osteoarthritis and additional findings above.
== END | disposition home or self-care (01) ==
LOC: RADMRIMAIN 14:54
PROVIDERS: ATTEND Internal Medicine
DX: M17.12 Unilateral primary osteoarthritis, left knee (principal); M71.22 Synovial cyst of popliteal space [Baker], left knee; M94.262 Chondromalacia, left knee

== ENCOUNTER → 2019-12-14 | Outpatient (CLI) | payer MEDICARE, BC ==
--- NOTE | 2019-12-14 17:43 | BD ---
EXAMINATION TYPE: Axial Bone Density DATE OF EXAM: 12/14/2019 COMPARISON: 11.26.2011 CLINICAL HISTORY: 79 YR OLD FEMALE.....ICD-10 CODE: N95.1 POST MENOPAUSAL Height: 62.5 Weight: 164 FRAX RISK QUESTIONS: Family History (Parent hip fracture): NO FX Glucocorticoids (More than 3mos): YES (Ex: prednisone, prednisolone, methylprednisolone, dexamethasone, and hydrocortisone). History of Fracture in Adulthood: YES RISK FACTORS HISTORY OF: BROKEN ANKLE AT AGE 78, LAST YR Family History of Osteoporosis: YES, SISTER, NO HIP FX Postmenopausal woman: YES, AT AGE 59 Take estrogen and/or progesterone medications: ONLY FOR A MONTH, NONE NOW Hyperparathyroidism: NO Adrenal Insufficiency: NO MEDICATIONS: Prednisone or other steroids: SINUS AND ASTHMA, STEROIDS AND INHALERS Thyroid Medications: YES, SYNTHROID FOR ABOUT 6 YRS Additional Medications: BP MEDS, XANAX PRN, STATIN FOR CHOLESTEROL, VIT D Additional History: HYPERTENSION, INSOMNIA, CHOLESTEROL EXAM MEASUREMENTS: Bone mineral densitometry was performed using the Flexuspine System. Bone mineral density as measured about the Lumbar spine is: ----- L1-L4(G/cm2): 1.409 T Score Values are as follows: ----- L1: -0.6 ----- L2: 1.9 ----- L3: 3.4 ----- L4: 2.2 ----- L1-L4: 1.9 Bone mineral density has: Increased 16.8% since study of: 11.26.2011 Bone mineral density about the R hip (g/cm2): 0.883 Bone mineral density about the L hip (g/cm2): 0.894 T Score values are as follows: -----R Neck: -1.6 -----L Neck: -1.5 -----R Total: -1.0 -----L Total: -0.9 Bone mineral density has: Decreased -0.1% since study of: 11.26.2011 FRAX%s: THERE IS A 27.6% CHANCE FOR A MAJOR OSTEOPOROTIC FX AND A 6.8% FOR HIP.....PROBABILITY FOR FX IN 10 YRS TIME IMPRESSION: Osteopenia (T Score between -2.5 and -1). There is slightly increased risk of fracture and the patient may be considered for treatment. Re-Screen 2-5 years. NOTE: T-SCORE=SD OF THE YOUNG ADULT MEAN.
--- NOTE | 2020-01-09 10:16 | MM ---
Reason for exam: screening (asymptomatic). Last mammogram was performed 3 years and 7 months ago. History: Patient is postmenopausal. Family history of breast cancer in paternal aunt, breast cancer in maternal aunt, and breast cancer in maternal cousin. Benign US right guided VAD of the right breast, June 18, 2010. Took hormonal contraceptives for 1 year. Physical Findings: A clinical breast exam by your physician is recommended on an annual basis and results should be correlated with mammographic findings. MG 3D Screening Mammo W/Cad Bilateral CC and MLO view(s) were taken. Prior study comparison: May 29, 2016, mammogram, performed at [facility]. April 17, 2015, mammogram, performed at [facility]. May 31, 2010, right breast diagnostic digital jeramie. November 27, 2009, right breast mammogram dig work up. The breast tissue is heterogeneously dense. This may lower the sensitivity of mammography. No significant changes when compared with prior studies. ASSESSMENT: Benign, BI-RAD 2 RECOMMENDATION: Routine screening mammogram of both breasts in 1 year.
== END | disposition home or self-care (01) ==
LOC: RADMAMWWP 13:07
PROVIDERS: ATTEND Internal Medicine
DX: Z12.31 Encounter for screening mammogram for malignant neoplasm of breast (principal); M85.80 Other specified disorders of bone density and structure, unspecified site
CPT/HCPCS: 77063; 77067; 77080

== ENCOUNTER → 2021-02-22 | Outpatient (CLI) | payer MEDICARE, BC ==
--- NOTE | 2021-02-26 11:07 | MM ---
Reason for exam: screening (asymptomatic). Last mammogram was performed 1 year and 2 months ago. History: Patient is postmenopausal. Family history of breast cancer in paternal aunt, breast cancer in maternal aunt, and breast cancer in maternal cousin. Benign US right guided VAD of the right breast, June 18, 2010. Took hormonal contraceptives for 1 year. Physical Findings: A clinical breast exam by your physician is recommended on an annual basis and results should be correlated with mammographic findings. MG 3D Screening Mammo W/Cad Bilateral CC and MLO view(s) were taken. Prior study comparison: December 14, 2019, bilateral MG 3d screening mammo w/cad. May 29, 2016, mammogram, performed at [facility]. No significant changes when compared with prior studies. ASSESSMENT: Benign, BI-RAD 2 RECOMMENDATION: Routine screening mammogram of both breasts in 1 year.
== END | disposition home or self-care (01) ==
LOC: RADMAMWWP 10:45
PROVIDERS: ATTEND Internal Medicine
DX: Z12.31 Encounter for screening mammogram for malignant neoplasm of breast (principal); Z80.3 Family history of malignant neoplasm of breast
CPT/HCPCS: 77063; 77067

== ENCOUNTER 2021-06-06 15:48 | Observation (INO) | payer MEDICARE, BC ==
[2021-06-06] MEDS ORDERED: ASPIRIN 81 MG PO STA (16:54)
[2021-06-06] MEDS ORDERED: NITROGLYCERIN SL TABS 0.4 MG TAB SUBLINGUAL STA (16:54)
--- NOTE | 2021-06-06 16:58 | ED ---
General Adult HPI - General Chief complaint: Shortness of Breath Stated complaint: possible blood clot, sent by PCP Time Seen by Provider: 06/06/21 16:15 Source: patient, RN notes reviewed Mode of arrival: ambulatory Limitations: no limitations - History of Present Illness Initial comments: Patient is a pleasant 81-year-old female presenting to the emergency Department with chest pain and dyspnea. Onset of symptoms was 2 or 3 weeks ago with COVID- 19 infection. Patient has gotten over this however has noticed her symptoms of chest tightness and exertional dyspnea worsening over the past week. Discomfort is moderate at this time. No history of similar symptoms prior to this. No leg pain or leg swelling. Patient does have a history of factor V Leiden. Patient is not on any anti-correlation at this time. No associated nausea or diaphoresis. - Related Data Home Medications Medication Instructions Recorded Confirmed ALPRAZolam [Xanax] 0.5 mg PO BID PRN 01/16/18 06/06/21 Ascorbic Acid [Vitamin C] 1,000 mg PO DAILY 09/01/18 06/06/21 Multivitamins, Thera [Multivitamin 1 tab PO DAILY 09/01/18 06/06/21 (formulary)] Turmeric Root Extract [Turmeric] 500 mg PO DAILY 09/01/18 06/06/21 Ubidecarenone [Co Q-10] 100 mg PO DAILY 09/01/18 06/06/21 carvediloL [Coreg] 6.25 mg PO BID 09/01/18 06/06/21 Baclofen 10 mg PO BID PRN 06/06/21 06/06/21 Cholecalciferol [Vitamin D3 (25 25 mcg PO DAILY 06/06/21 06/06/21 Mcg = 1000 Iu)] Dexamethasone [Decadron] 4 mg PO BID 06/06/21 06/06/21 Furosemide [Lasix] 20 mg PO DAILY 06/06/21 06/06/21 Levothyroxine Sodium [Synthroid] 50 mcg PO DAILY 06/06/21 06/06/21 Potassium Chloride [Klor-Con 10 ER] 10 meq PO DAILY 06/06/21 06/06/21 Rosuvastatin Calcium [Crestor] 5 mg PO DAILY 06/06/21 06/06/21 guaiFENesin-Coden 100-10MG/5ML 10 ml PO Q4H PRN 06/06/21 06/06/21 [Robitussin AC] hydrALAZINE HCL 25 mg PO BID 06/06/21 06/06/21 Allergies Allergy/AdvReac Type Severity Reaction Status Date / Time levofloxacin [From Levaquin] Allergy Swelling Verified 06/06/21 18:14 metronidazole [From Flagyl] Allergy Swelling Verified 06/06/21 18:14 Sulfa (Sulfonamide Allergy Swelling Verified 06/06/21 18:14 Antibiotics) Review of Systems ROS Statement: Those systems with pertinent positive or pertinent negative responses have been documented in the HPI. ROS Other: All systems not noted in ROS Statement are negative. Constitutional: Denies: fever Eyes: Denies: eye pain ENT: Denies: ear pain Respiratory: Reports: as per HPI, dyspnea Cardiovascular: Reports: chest pain Endocrine: Denies: fatigue Gastrointestinal: Denies: abdominal pain Genitourinary: Denies: dysuria Musculoskeletal: Denies: back pain Skin: Denies: rash Neurological: Denies: weakness Past Medical History Past Medical History: Hyperlipidemia, Hypertension, Thyroid Disorder Additional Past Medical History / Comment(s): irregular heartbeat, factor V,divertculitis,anxiety History of Any Multi-Drug Resistant Organisms: None Reported Past Surgical History: Section, Cholecystectomy Additional Past Surgical History / Comment(s): 2 - c sections, cataract surgery Past Anesthesia/Blood Transfusion Reactions: No Reported Reaction Past Psychological History: Anxiety Smoking Status: Never smoker Past Alcohol Use History: Rare Past Drug Use History: None Reported - Past Family History Father Family Medical History: Cancer Additional Family Medical History / Comment(s): lung and prostate cancer Mother Additional Family Medical History / Comment(s): brain tumor General Exam Limitations: no limitations General appearance: alert, in no apparent distress Head exam: Present: normocephalic Eye exam: Present: normal appearance Neck exam: Present: normal inspection Respiratory exam: Present: normal lung sounds bilaterally. Absent: chest wall tenderness Cardiovascular Exam: Present: regular rate, normal rhythm Expanded Peripheral pulses: 2+: Radial (R), Radial (L), Posterior Tibialis (R), Posterior Tibialis (L) GI/Abdominal exam: Present: soft. Absent: tenderness Extremities exam: Present: normal inspection. Absent: pedal edema, calf tenderness Neurological exam: Present: alert Psychiatric exam: Present: normal affect, normal mood Skin exam: Present: normal color Course Vital Signs 06/06/21 06/06/21 06/06/21 16:09 16:18 17:27 Temperature 98.1 F Pulse Rate 65 47 L Respiratory 16 16 16 Rate Blood Pressure 154/69 102/55 O2 Sat by Pulse 99 99 Oximetry 06/06/21 19:26 Temperature Pulse Rate 53 L Respiratory 16 Rate Blood Pressure 160/62 O2 Sat by Pulse 98 Oximetry - Reevaluation(s) Reevaluation #1: 06/06/21 17:29 Patient had a syncopal versus near-syncopal episode in the bathroom following nitroglycerin. Patient did not get injured. Patient reevaluated by myself. Blood pressure 96 systolic. Patient is sitting to feel better. Repeat EKG shows sinus bradycardia rate 47. W[place] 152. QRS 82. QT 438. QTC 387. Normal axis. Normal QRS. No acute ST change EKG Findings - EKG Comments: EKG Findings:: Sinus bradycardia with rate of 56. W[place] 142. QRS 82. QT 378. QTC 364. Normal axis. Normal QRS. No acute ST change. Medical Decision Making - Medical Decision Making Patient reevaluated and resting comfortably in bed. Patient family updated on results and plan. Case was discussed with Dr. Purcell who is familiar with this patient. He will admit and requests ultrasound of the legs as well as Lovenox. - Lab Data Result diagrams: 06/06/21 17:04 06/06/21 17:04 Lab Results 06/06/21 06/06/21 06/06/21 Range/Units 17:04 17:04 17:04 WBC 11.6 H (3.8-10.6) k/uL RBC 3.73 L (3.80-5.40) m/uL Hgb 12.2 (11.4-16.0) gm/dL Hct 36.3 (34.0-46.0) % MCV 97.5 (80.0-100.0) fL MCH 32.9 (25.0-35.0) pg MCHC 33.7 (31.0-37.0) g/dL RDW 13.4 (11.5-15.5) % Plt Count 295 (150-450) k/uL MPV 7.2 Neutrophils % 68 % Lymphocytes % 22 % Monocytes % 6 % Eosinophils % 2 % Basophils % 0 % Neutrophils # 7.9 H (1.3-7.7) k/uL Lymphocytes # 2.6 (1.0-4.8) k/uL Monocytes # 0.7 (0-1.0) k/uL Eosinophils # 0.2 (0-0.7) k/uL Basophils # 0.0 (0-0.2) k/uL PT 10.3 (9.0-12.0) sec INR 1.0 (<1.2) APTT 22.7 (22.0-30.0) sec Sodium 130 L (137-145) mmol/L Potassium 3.9 (3.5-5.1) mmol/L Chloride 96 L (98-107) mmol/L Carbon Dioxide 28 (22-30) mmol/L Anion Gap 6 mmol/L BUN 23 H (7-17) mg/dL Creatinine 1.13 H (0.52-1.04) mg/dL Est GFR (CKD-EPI)AfAm 54 (>60 ml/min/1.73 sqM) Est GFR (CKD-EPI)NonAf 46 (>60 ml/min/1.73 sqM) Glucose 131 H (74-99) mg/dL POC Glucose (mg/dL) (75-99) mg/dL POC Glu Build Engineer ID Calcium 8.9 (8.4-10.2) mg/dL Magnesium 1.9 (1.6-2.3) mg/dL Total Bilirubin 0.5 (0.2-1.3) mg/dL AST 26 (14-36) U/L ALT 26 (4-34) U/L Alkaline Phosphatase 51 (38-126) U/L Troponin I (0.000-0.034) ng/mL Total Protein 6.2 L (6.3-8.2) g/dL Albumin 3.5 (3.5-5.0) g/dL 06/06/21 06/06/21 Range/Units 17:04 17:17 WBC (3.8-10.6) k/uL RBC (3.80-5.40) m/uL Hgb (11.4-16.0) gm/dL Hct (34.0-46.0) % MCV (80.0-100.0) fL MCH (25.0-35.0) pg MCHC (31.0-37.0) g/dL RDW (11.5-15.5) % Plt Count (150-450) k/uL MPV Neutrophils % % Lymphocytes % % Monocytes % % Eosinophils % % Basophils % % Neutrophils # (1.3-7.7) k/uL Lymphocytes # (1.0-4.8) k/uL Monocytes # (0-1.0) k/uL Eosinophils # (0-0.7) k/uL Basophils # (0-0.2) k/uL PT (9.0-12.0) sec INR (<1.2) APTT (22.0-30.0) sec Sodium (137-145) mmol/L Potassium (3.5-5.1) mmol/L Chloride (98-107) mmol/L Carbon Dioxide (22-30) mmol/L Anion Gap mmol/L BUN (7-17) mg/dL Creatinine (0.52-1.04) mg/dL Est GFR (CKD-EPI)AfAm (>60 ml/min/1.73 sqM) Est GFR (CKD-EPI)NonAf (>60 ml/min/1.73 sqM) Glucose (74-99) mg/dL POC Glucose (mg/dL) 109 H (75-99) mg/dL POC Glu Build Engineer Saji Ott Calcium (8.4-10.2) mg/dL Magnesium (1.6-2.3) mg/dL Total Bilirubin (0.2-1.3) mg/dL AST (14-36) U/L ALT (4-34) U/L Alkaline Phosphatase (38-126) U/L Troponin I <0.012 (0.000-0.034) ng/mL Total Protein (6.3-8.2) g/dL Albumin (3.5-5.0) g/dL - Radiology Data Radiology results: report reviewed (CT negative for pulmonary embolism) Disposition Clinical Impression: Chest pain Disposition: ADMITTED IP TO THIS [facility] Is patient prescribed a controlled substance at d/c from ED?: No Referrals: Héctor Purcell MD [Primary Care Provider] - 1-2 days Decision Time: 19:46
[2021-06-06 17:19] LABS: Glucose,Whole Blood 109 mg/dL (75-99)
[2021-06-06 17:19] LABS: Basophils % (A) 0 %; Eosinophils # (A) 0.2 k/uL (0-0.7); Eosinophils % (A) 2 %; HCT 36.3 % (34.0-46.0); HGB 12.2 gm/dL (11.4-16.0); Lymphocytes # (A) 2.6 k/uL (1.0-4.8); Lymphocytes % (A) 22 %; MCH 32.9 pg (25.0-35.0); MCHC 33.7 g/dL (31.0-37.0); MCV 97.5 fL (80.0-100.0); Mean Platelet Volume 7.2; Monocytes # (A) 0.7 k/uL (0-1.0); Monocytes % (A) 6 %; Neutrophils # (A) 7.9 k/uL (1.3-7.7); Neutrophils % (A) 68 %; Platelet Count 295 k/uL (150-450); RBC 3.73 m/uL (3.80-5.40); RDW 13.4 % (11.5-15.5); WBC 11.6 k/uL (3.8-10.6)
[2021-06-06 17:28] LABS: Partial Thromboplastin Time 22.7 sec (22.0-30.0); Prothrombin Time 10.3 sec (9.0-12.0)
[2021-06-06 17:36] LABS: Albumin 3.5 g/dL (3.5-5.0); Calcium 8.9 mg/dL (8.4-10.2); Magnesium 1.9 mg/dL (1.6-2.3); Potassium 3.9 mmol/L (3.5-5.1); Total Bilirubin 0.5 mg/dL (0.2-1.3); Total Protein 6.2 g/dL (6.3-8.2)
--- NOTE | 2021-06-06 18:44 | CT ---
EXAMINATION TYPE: CT angio chest CT DLP: 304.3 mGycm, Automated exposure control for dose reduction was used. DATE OF EXAM: 06/06/2021 6:28 PM COMPARISON: CT of the chest on 12/24/2018 . CLINICAL INDICATION:Female, 81 years old with history of pain, SOB, Hx Covid. Hx Factor 5. TECHNIQUE/CONTRAST: CTA scan of the thorax is performed with IV Contrast, patient injected with 80 mL of Isovue 370, pulm onary embolism protocol. MIP images are created and reviewed. FINDINGS: Pulmonary Artery: There is no evidence for a filling defect within the pulmonary vasculature to sugge st acute pulmonary embolism. The pulmonary artery is of normal size. Lungs/Pleura: No evidence of focal consolidation, pleural effusion or pneumothorax. Streaky atelectas is/scarring of the lower lobes and lingula and right middle lobe. Airway: Patent and grossly unremarkable. Heart: Within normal limits for size. Vasculature: No evidence of aortic aneurysm. Mediastinum: No gross evidence of adenopathy. Musculoskeletal: No acute osseous abnormalities Soft Tissues: Unremarkable. Lower neck: No significant findings. Upper Abdomen: Stable left renal hyperdense cyst measuring 90 Hounsfield units and 1.2 cm. Gallbladde r is surgically absent. IMPRESSION: 1. No evidence of pulmonary embolism.
[2021-06-06] MEDS ORDERED: NITROGLYCERIN SL TABS 0.4 MG TAB SUBLINGUAL PRN (19:46)
[2021-06-06] MEDS: ENOXAPARIN 30 MG/0.3 ML SYRINGE SQ SCH (21:33)
--- NOTE | 2021-06-06 22:18 | US ---
EXAMINATION TYPE: US venous doppler duplex LE DATE OF EXAM: 06/06/2021 10:09 PM COMPARISON: US CLINICAL HISTORY: Elevated d-dimer with history of factor V. Elevated D-Dimer with HX of factor V. SIDE PERFORMED: Bilateral TECHNIQUE: The lower extremity deep venous system is examined utilizing real time linear array sonog amena with graded compression, doppler sonography and color-flow sonography. VESSELS IMAGED: Common Femoral Vein Deep Femoral Vein Greater Saphenous Vein * Femoral Vein Popliteal Vein Small Saphenous Vein * Proximal Calf Veins (* superficial vessels) Right Leg: Possible chronic internal echoes within femoral and deep femoral vein, these vein segment s appear to compress incompletely. Color flow seen in all veins imaged. Complex area right popliteal fossa: 5.4 x 3.6 x 1.7 cm. Left Leg: No evidence of DVT. Complex area left popliteal fossa: 5.0 x 2.9 x 1.9 cm. IMPRESSION: There is evidence of chronic deep vein thrombosis in the right leg. There is left-sided popliteal cyst. There is large right popliteal cyst. No evidence of deep vein thrombosis in the left leg.
[2021-06-07] MEDS ORDERED: ASPIRIN 325 MG TAB PO SCH (09:00)
[2021-06-07] MEDS ORDERED: ALPRAZolam 0.5 MG TAB PO PRN (09:03)
[2021-06-07] MEDS ORDERED: guaiFENesin-Coden 100-10MG/5ML 10 ML CUP PO PRN (09:03)
[2021-06-07] MEDS: ENOXAPARIN 30 MG/0.3 ML SYRINGE SQ SCH (09:19)
[2021-06-07 10:17] LABS: HDL Cholesterol 51.7 mg/dL (40.00-60.00)
[2021-06-07 10:27] LABS: Chol/HDL Ratio 3.27 Ratio; LDL Cholesterol,Direct Reflex 60.2 mg/dL (0.00-129.00)
[2021-06-07 11:00] LABS: ALT 23 U/L (4-34); AST 23 U/L (14-36); African American GFR (CKD) 52 (>60 ml/min/1.73 sqM); Albumin 3.2 g/dL (3.5-5.0); Albumin/Globulin Ratio 1.1; Alkaline Phosphatase 48 U/L (38-126); Anion Gap 4 mmol/L; Blood Urea Nitrogen 16 mg/dL (7-17); Calcium 8.7 mg/dL (8.4-10.2); Carbon Dioxide 29 mmol/L (22-30); Chloride 103 mmol/L (98-107); Globulin 2.9 g/dL; Glucose 87 mg/dL (74-99); Non-African American GFR(CKD) 45 (>60 ml/min/1.73 sqM); Potassium 4.2 mmol/L (3.5-5.1); Sodium 136 mmol/L (137-145); Total Bilirubin 0.9 mg/dL (0.2-1.3); Total Protein 6.1 g/dL (6.3-8.2)
--- NOTE | 2021-06-07 11:04 | P.HPIM ---
History of Present Illness H&P Date: 06/07/21 Chief Complaint: Chest pain This is a 81-year-old female patient who presented complaints of chest pain and patient reports that she had a recent COVID-19 infection approximately 2-3 weeks ago did recover but started to experience some chest discomfort this week. Patient reports that chest pain and dyspnea have been worsening over the past week. Patient does have past medical history of factor V disorder, hyperlipidemia, hypertension and thyroid disorder. Patient did present to her PCP in which a d-dimer was completed on 06/06/2021 was elevated at 7.07. Chest CT was completed showing no evidence of pulmonary embolism. Venous Doppler completed showing evidence of chronic deep vein thrombosis in the right leg there is left-sided popliteal cyst no evidence of deep vein thrombosis in left leg. COVID-19 was negative. Troponins negative 3. Patient has been started on Lovenox 30 mg subcu every 12. Cardiology services consulted stress test has been ordered. Hematology services also will be consulted due to patient's history of factor V disorder and chronic DVT. This time patient is still complaining of chest tightness. Patient denies shortness breath. Patient denies nausea vomiting or diarrhea. Patient denies any urinary burning or frequency. Review of Systems Please refer to HPI otherwise unremarkable Past Medical History Past Medical History: Hyperlipidemia, Hypertension, Thyroid Disorder Additional Past Medical History / Comment(s): irregular heartbeat, factor V,divertculitis,anxiety History of Any Multi-Drug Resistant Organisms: None Reported Past Surgical History: Section, Cholecystectomy Additional Past Surgical History / Comment(s): 2 - c sections, cataract surgery Past Anesthesia/Blood Transfusion Reactions: No Reported Reaction Past Psychological History: Anxiety Smoking Status: Never smoker Past Alcohol Use History: Rare Past Drug Use History: None Reported - Past Family History Father Family Medical History: Cancer Additional Family Medical History / Comment(s): lung and prostate cancer Mother Additional Family Medical History / Comment(s): brain tumor Medications and Allergies Home Medications Medication Instructions Recorded Confirmed Type ALPRAZolam [Xanax] 0.5 mg PO BID PRN 01/16/18 06/06/21 History Ascorbic Acid [Vitamin C] 1,000 mg PO DAILY 09/01/18 06/06/21 History Multivitamins, Thera [Multivitamin 1 tab PO DAILY 09/01/18 06/06/21 History (formulary)] Turmeric Root Extract [Turmeric] 500 mg PO DAILY 09/01/18 06/06/21 History Ubidecarenone [Co Q-10] 100 mg PO DAILY 09/01/18 06/06/21 History carvediloL [Coreg] 6.25 mg PO BID 09/01/18 06/06/21 History Baclofen 10 mg PO BID PRN 06/06/21 06/06/21 History Cholecalciferol [Vitamin D3 (25 25 mcg PO DAILY 06/06/21 06/06/21 History Mcg = 1000 Iu)] Dexamethasone [Decadron] 4 mg PO BID 06/06/21 06/06/21 History Furosemide [Lasix] 20 mg PO DAILY 06/06/21 06/06/21 History Levothyroxine Sodium [Synthroid] 50 mcg PO DAILY 06/06/21 06/06/21 History Potassium Chloride [Klor-Con 10 ER] 10 meq PO DAILY 06/06/21 06/06/21 History Rosuvastatin Calcium [Crestor] 5 mg PO DAILY 06/06/21 06/06/21 History guaiFENesin-Coden 100-10MG/5ML 10 ml PO Q4H PRN 06/06/21 06/06/21 History [Robitussin AC] hydrALAZINE HCL 25 mg PO BID 06/06/21 06/06/21 History Allergies Allergy/AdvReac Type Severity Reaction Status Date / Time levofloxacin [From Levaquin] Allergy Swelling Verified 06/06/21 18:14 metronidazole [From Flagyl] Allergy Swelling Verified 06/06/21 18:14 Sulfa (Sulfonamide Allergy Swelling Verified 06/06/21 18:14 Antibiotics) Physical Exam Vitals: Vital Signs Temp Pulse Pulse Resp BP BP Pulse Ox 06/07/21 07:48 98.9 F 53 L 16 155/84 97 06/07/21 07:27 98.9 F 58 L 18 141/65 98 06/07/21 05:30 98.9 F 57 L 18 150/68 98 06/07/21 00:00 56 L 16 137/78 98 06/06/21 19:26 53 L 16 160/62 98 06/06/21 17:27 47 L 16 102/55 99 06/06/21 16:18 16 06/06/21 16:09 98.1 F 65 16 154/69 99 Intake and Output 06/06/21 06/07/21 06/07/21 22:59 06:59 14:59 Other: Weight 73.482 kg Head normocephalic Neck supple Lungs clear to auscultation bilaterally no wheezing or crackles Heart regular rate and rhythm S1-S2, no rub or gallop Abdomen is soft nontender nondistended positive bowel sounds no hepatosplenomegaly Extremities no edema Neuro alert and orientated to 3 Results CBC & Chem 7: 06/06/21 17:04 06/06/21 17:04 Labs: Abnormal Lab Results - Last 24 Hours (Table) 06/06/21 06/06/21 06/06/21 Range/Units 17:04 17:04 17:04 WBC 11.6 H (3.8-10.6) k/uL RBC 3.73 L (3.80-5.40) m/uL Neutrophils # 7.9 H (1.3-7.7) k/uL Sodium 130 L (137-145) mmol/L Chloride 96 L (98-107) mmol/L BUN 23 H (7-17) mg/dL Creatinine 1.13 H (0.52-1.04) mg/dL Glucose 131 H (74-99) mg/dL POC Glucose (mg/dL) (75-99) mg/dL Total Protein 6.2 L (6.3-8.2) g/dL Triglycerides 437.00 H (0.00-149.00) mg/dL 06/06/21 Range/Units 17:17 WBC (3.8-10.6) k/uL RBC (3.80-5.40) m/uL Neutrophils # (1.3-7.7) k/uL Sodium (137-145) mmol/L Chloride (98-107) mmol/L BUN (7-17) mg/dL Creatinine (0.52-1.04) mg/dL Glucose (74-99) mg/dL POC Glucose (mg/dL) 109 H (75-99) mg/dL Total Protein (6.3-8.2) g/dL Triglycerides (0.00-149.00) mg/dL Thrombosis Risk Factor Assmnt - Choose All That Apply Any of the Below Risk Factors Present?: No Assessment and Plan Assessment: 1. Chest pain. Troponins negative 3. CTA negative for PE 2. Chronic DVT seen on venous Doppler. Will consult hematology services 3. Recent COVID-19 infection 4. History of factor V disorder 5. History of hyperlipidemia 6. History of hypothyroidism 7. History of essential hypertension Cardiology service is consulted Stress tests have been ordered Hematology service is consulted Patient currently maintained on Lovenox subcu 30 mg twice a day Time with Patient: Greater than 30 (Greater than 60% of the total time spent in counseling and coordination of care)
--- NOTE | 2021-06-07 12:03 | CONS ---
CONSULTATION This is a 81-year-old lady who used to see Dr. Rojas until January of 2020 and has not kept her appointments. She has a history of hypertension. She takes hydralazine, carvedilol, rosuvastatin at home. She has hypertension, hypercholesterolemia and atypical chest pain. She had an echo that was performed sometime in February of 2020 which revealed normal LV size and systolic function. She came into the hospital mainly with complaints of having a nondescript pressure over her chest on and off. She apparently had COVID 3 weeks ago or so. She recovered from that and now started having tightness in the chest, felt concerned and came in. Her troponins are normal. She still has a somewhat uncomfortable feeling over the chest. However, the quality of pain is very atypical. BP control is good. Troponins are normal. EKG does not reveal any acute changes. She is resting comfortably at the time of my evaluation. PAST MEDICAL HISTORY: 1. History of hypertension. 2. Hypercholesterolemia. 3. Hypothyroidism. MEDICATIONS: Medications at home include Xanax, vitamin supplements, carvedilol 6.25 mg b.i.d., hydralazine 25 mg b.i.d., Crestor 5 mg daily, Synthroid 50 mcg daily, Lasix 20 mg daily and potassium 10 mEq daily. LABORATORY DATA: Three sets of troponins are unremarkable. Her renal function appears to be normal. LDL cholesterol is also unremarkable. PHYSICAL EXAMINATION: On examination, blood pressure is 140/70, pulse rate is 60 per minute, regular. HEENT unremarkable. Fundus was not examined by me. Neck is supple. No JVD. I do not hear a carotid bruit. There is no thyromegaly. Heart exam reveals S1, S2 with a short systolic murmur along left sternal border. Lungs reveal decent air entry. Abdomen is soft, nontender. Lower extremities reveal palpable pulses. No edema. Central nervous system is grossly within normal limits. Patient when she complained of chest pain received nitroglycerin and developed hypotension in the emergency room. She is very concerned and does not wish to have any Lexiscan stress test, which was actually scheduled for her last year and she canceled it on her own. The quality of pain seems atypical, but she has moderate risk factor profile and has had recurrent episodes. Therefore I will do a stress echo and if this is normal she can be discharged. IMPRESSION: 1. Atypical chest pain. 2. Hypertension. 3. Hyperlipidemia. 4. Recent COVID infection, from which she has recovered. 5. History of hypothyroidism. RECOMMENDATIONS: Same medical regimen. Increase activity. Will proceed with a stress echo and echocardiogram, and if these are normal she can be discharged. Thank you very much for the consult. LIBBY / ANEL: [id number] /
--- NOTE | 2021-06-07 12:16 | P.CONS ---
History of Present Illness - Reason for Consult Consult date: 06/07/21 Chronic DVT and Factor V Requesting physician: Maggie Gold - Chief Complaint Chest pain - History of Present Illness 81 year old patient who presented with chest pain on admission. 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 She is a poor historian but to her knowledge never has had a clot. She speaks of an injury a few years back however when reviewing prior dopplers this chronic appearing dvt was not present. Therefore it was felt to be present greater than 6 weeks but less than 2 years ago. She has recently had covid, although the picture of this thrombus is older than 3 weeks prior. We have been asked to evaluate due to her chronic DVT and hypercoag state. She is hesistant about anticoagulation but time was spent explaining and answering all of her questions. Review of Systems All systems: negative Constitutional: Reports as per HPI Past Medical History Past Medical History: Hyperlipidemia, Hypertension, Thyroid Disorder Additional Past Medical History / Comment(s): irregular heartbeat, factor V,divertculitis,anxiety History of Any Multi-Drug Resistant Organisms: None Reported Past Surgical History: Section, Cholecystectomy Additional Past Surgical History / Comment(s): 2 - c sections, cataract surgery Past Anesthesia/Blood Transfusion Reactions: No Reported Reaction Past Psychological History: Anxiety Smoking Status: Never smoker Past Alcohol Use History: Rare Past Drug Use History: None Reported - Past Family History Father Family Medical History: Cancer Additional Family Medical History / Comment(s): lung and prostate cancer Mother Additional Family Medical History / Comment(s): brain tumor Medications and Allergies Home Medications Medication Instructions Recorded Confirmed Type ALPRAZolam [Xanax] 0.5 mg PO BID PRN 01/16/18 06/06/21 History Ascorbic Acid [Vitamin C] 1,000 mg PO DAILY 09/01/18 06/06/21 History Multivitamins, Thera [Multivitamin 1 tab PO DAILY 09/01/18 06/06/21 History (formulary)] Turmeric Root Extract [Turmeric] 500 mg PO DAILY 09/01/18 06/06/21 History Ubidecarenone [Co Q-10] 100 mg PO DAILY 09/01/18 06/06/21 History carvediloL [Coreg] 6.25 mg PO BID 09/01/18 06/06/21 History Baclofen 10 mg PO BID PRN 06/06/21 06/06/21 History Cholecalciferol [Vitamin D3 (25 25 mcg PO DAILY 06/06/21 06/06/21 History Mcg = 1000 Iu)] Dexamethasone [Decadron] 4 mg PO BID 06/06/21 06/06/21 History Furosemide [Lasix] 20 mg PO DAILY 06/06/21 06/06/21 History Levothyroxine Sodium [Synthroid] 50 mcg PO DAILY 06/06/21 06/06/21 History Potassium Chloride [Klor-Con 10 ER] 10 meq PO DAILY 06/06/21 06/06/21 History Rosuvastatin Calcium [Crestor] 5 mg PO DAILY 06/06/21 06/06/21 History guaiFENesin-Coden 100-10MG/5ML 10 ml PO Q4H PRN 06/06/21 06/06/21 History [Robitussin AC] hydrALAZINE HCL 25 mg PO BID 06/06/21 06/06/21 History Allergies Allergy/AdvReac Type Severity Reaction Status Date / Time levofloxacin [From Levaquin] Allergy Swelling Verified 06/06/21 18:14 metronidazole [From Flagyl] Allergy Swelling Verified 06/06/21 18:14 Sulfa (Sulfonamide Allergy Swelling Verified 06/06/21 18:14 Antibiotics) Physical Exam Vitals: Vital Signs Temp Pulse Pulse Resp BP BP Pulse Ox 06/07/21 07:48 98.9 F 53 L 16 155/84 97 06/07/21 07:27 98.9 F 58 L 18 141/65 98 06/07/21 05:30 98.9 F 57 L 18 150/68 98 06/07/21 00:00 56 L 16 137/78 98 06/06/21 19:26 53 L 16 160/62 98 06/06/21 17:27 47 L 16 102/55 99 06/06/21 16:18 16 06/06/21 16:09 98.1 F 65 16 154/69 99 Intake and Output 06/06/21 06/07/21 06/07/21 22:59 06:59 14:59 Other: Weight 73.482 kg 73.48 kg Head normocephalic Neck supple pale Lungs clear to auscultation bilaterally no wheezing or crackles Heart regular rate and rhythm S1-S2, no rub or gallop Abdomen is soft nontender nondistended positive bowel sounds no hepatosplenomegaly Extremities no edema Neuro alert and orientated to 3 Results CBC & Chem 7: 06/07/21 10:11 06/07/21 10:11 Labs: Abnormal Lab Results - Last 24 Hours (Table) 06/06/21 06/06/21 06/06/21 Range/Units 17:04 17:04 17:04 WBC 11.6 H (3.8-10.6) k/uL RBC 3.73 L (3.80-5.40) m/uL Neutrophils # 7.9 H (1.3-7.7) k/uL Sodium 130 L (137-145) mmol/L Chloride 96 L (98-107) mmol/L BUN 23 H (7-17) mg/dL Creatinine 1.13 H (0.52-1.04) mg/dL Glucose 131 H (74-99) mg/dL POC Glucose (mg/dL) (75-99) mg/dL Total Protein 6.2 L (6.3-8.2) g/dL Albumin (3.5-5.0) g/dL Triglycerides 437.00 H (0.00-149.00) mg/dL 06/06/21 06/07/21 Range/Units 17:17 10:11 WBC (3.8-10.6) k/uL RBC (3.80-5.40) m/uL Neutrophils # (1.3-7.7) k/uL Sodium 136 L (137-145) mmol/L Chloride (98-107) mmol/L BUN (7-17) mg/dL Creatinine 1.15 H (0.52-1.04) mg/dL Glucose (74-99) mg/dL POC Glucose (mg/dL) 109 H (75-99) mg/dL Total Protein 6.1 L (6.3-8.2) g/dL Albumin 3.2 L (3.5-5.0) g/dL Triglycerides (0.00-149.00) mg/dL Chest x-ray: report reviewed CT scan - chest: report reviewed Assessment and Plan (1) Chronic deep vein thrombosis (DVT) Narrative/Plan: No acute thrombolic event identified but with known hypercoagulable state recommend Eliquis 5mg po BID. Since the age of DVT is unknown but delevloped with patient taking daily aspirin she will likely require life long anticoagulation Current Visit: Yes Status: Acute Code(s): I82.509 - CHRONIC EMBOLISM AND THOMBOS UNSP DEEP VN UNSP LOW EXTRM SNOMED Code(s): 59359409157806428 (2) Chest pain Current Visit: Yes Status: Acute Code(s): R07.9 - CHEST PAIN, UNSPECIFIED SNOMED Code(s): 76029746 (3) Hypertension Current Visit: No Status: Acute Code(s): I10 - ESSENTIAL (PRIMARY) HYPERTENSION SNOMED Code(s): 53779626 Plan: physician Attest: I have completed the full history and physical and agree with above dictation, dictated as a scribe.
[2021-06-07 14:34] LABS: Basophils # (A) 0.02 X 10*3/uL (0.00-0.10); Basophils % (A) 0.2 %; Eosinophils # (A) 0.23 X 10*3/uL (0.04-0.35); Eosinophils % (A) 2.5 %; HCT 34.8 % (37.2-46.3); HGB 11.3 g/dL (12.0-15.0); Lymphocytes # (A) 1.99 X 10*3/uL (0.90-5.00); Lymphocytes % (A) 21.2 %; MCH 31.7 pg (27.0-32.0); MCHC 32.5 g/dL (32.0-37.0); MCV 97.5 fL (80.0-97.0); Mean Platelet Volume 9.9 fL (9.5-12.2); Monocytes # (A) 0.91 X 10*3/uL (0.20-1.00); Monocytes % (A) 9.7 %; Neutrophils # (A) 6.13 X 10*3/uL (1.80-7.70); Neutrophils % (A) 65.3 %; Platelet Count 250 X 10*3/uL (140-440); RBC 3.57 X 10*6/uL (4.10-5.20); RDW 13.3 % (11.5-14.5); WBC 9.38 X 10*3/uL (4.50-10.00)
[2021-06-07] MEDS ORDERED: BACLOFEN 10 MG TAB PO PRN (15:26)
[2021-06-07] MEDS: carvediloL 6.25 MG TAB PO SCH (16:19)
[2021-06-07] MEDS: hydrALAZINE HCL 25 MG TAB PO SCH (20:09)
[2021-06-07] MEDS: APIXABAN 5 MG TAB PO SCH (20:09)
[2021-06-08] MEDS ORDERED: LEVOTHYROXINE 50 MCG TAB PO SCH (06:30)
[2021-06-08] MEDS: APIXABAN 5 MG TAB PO SCH (08:24)
[2021-06-08] MEDS: hydrALAZINE HCL 25 MG TAB PO SCH (08:24)
[2021-06-08] MEDS: carvediloL 6.25 MG TAB PO SCH (08:27)
[2021-06-08 08:31] VITALS: BP 123/66; PULSE 91; RESP 17; TEMP 98.1
[2021-06-08] MEDS ORDERED: MULTIVITAMINS, THERA 1 EACH TAB PO SCH (09:00)
[2021-06-08] MEDS ORDERED: ASCORBIC ACID 500 MG TAB PO SCH (09:00)
[2021-06-08] MEDS ORDERED: CHOLECALCIFEROL 25 MCG (1000 IU) TABLET PO SCH (09:00)
[2021-06-08] MEDS ORDERED: ATORVASTATIN 10 MG TAB PO SCH (09:00)
[2021-06-08] MEDS ORDERED: POTASSIUM CHLORIDE ER 10 MEQ TAB.ER.PRT PO SCH (09:00)
[2021-06-08] MEDS ORDERED: ASPIRIN 81 MG PO SCH (09:00)
[2021-06-08] MEDS ORDERED: FUROSEMIDE 20 MG TAB PO SCH (09:00)
--- NOTE | 2021-06-08 11:29 | P.DS ---
Providers Date of admission: 06/06/21 19:46 Expected date of discharge: 06/08/21 Attending physician: Héctor Purcell Consults: 06/07/21 10:05 Consult Physician Routine Consulting Provider: Kulwant Wolfe Consult Reason/Comments: factor V disorder, chronic DVT Do you want consulting provider notified?: Yes Primary care physician: Héctor Binh [facility] Course: Discharge diagnosis 1. Chest pain. Troponins negative 3. CTA negative for PE 2. Chronic DVT seen on venous Doppler. Will consult hematology services 3. Recent COVID-19 infection 4. History of factor V disorder 5. History of hyperlipidemia 6. History of hypothyroidism 7. History of essential hypertension Hospital course This is a 81-year-old female patient who presented complaints of chest pain and patient reports that she had a recent COVID-19 infection approximately 2-3 weeks ago did recover but started to experience some chest discomfort this week. Patient reports that chest pain and dyspnea have been worsening over the past week. Patient does have past medical history of factor V disorder, hyperlipidemia, hypertension and thyroid disorder. Patient did present to her PCP in which a d-dimer was completed on 06/06/2021 was elevated at 7.07. Chest CT was completed showing no evidence of pulmonary embolism. Venous Doppler completed showing evidence of chronic deep vein thrombosis in the right leg there is left-sided popliteal cyst no evidence of deep vein thrombosis in left leg. COVID-19 was negative. Troponins negative 3. Patient has been started on Lovenox 30 mg subcu every 12. Cardiology services consulted stress test has been ordered. Hematology services also will be consulted due to patient's history of factor V disorder and chronic DVT. This time patient is still complaining of chest tightness. Patient denies shortness breath. Patient denies nausea vomiting or diarrhea. Patient denies any urinary burning or william quency. On 06/08/2021 patient is alert and oriented 3. Patient did undergo stress test yesterday awaiting final cardiology clearanced prior to discharge this was discussed with nursing staff and verbal understanding that patient must be cleared by cardiology services prior to discharge. Patient was also evaluated by hematology services for chronic lower extremity DVT and was recommended the patient be started on eliquis. Patient is agreeable. Did discuss with case management coverage approved for eliquis 5 mg twice a day. At this time patient denies chest pain or shortness breath. Patient denies nausea vomiting or diarrhea. Patient denies any urinary burning or frequency Patient Condition at Discharge: Stable Plan - Discharge Summary Discharge Rx Participant: No New Discharge Prescriptions: New Apixaban [Eliquis] 5 mg PO BID 30 Days #60 tab Continue ALPRAZolam [Xanax] 0.5 mg PO BID PRN PRN Reason: Anxiety Ascorbic Acid [Vitamin C] 1,000 mg PO DAILY Ubidecarenone [Co Q-10] 100 mg PO DAILY Multivitamins, Thera [Multivitamin (formulary)] 1 tab PO DAILY carvediloL [Coreg] 6.25 mg PO BID Turmeric Root Extract [Turmeric] 500 mg PO DAILY hydrALAZINE HCL 25 mg PO BID Baclofen 10 mg PO BID PRN PRN Reason: Pain guaiFENesin-Coden 100-10MG/5ML [Robitussin AC] 10 ml PO Q4H PRN PRN Reason: Cough Rosuvastatin Calcium [Crestor] 5 mg PO DAILY Potassium Chloride [Klor-Con 10 ER] 10 meq PO DAILY Cholecalciferol [Vitamin D3 (25 Mcg = 1000 Iu)] 25 mcg PO DAILY Levothyroxine Sodium [Synthroid] 50 mcg PO DAILY Furosemide [Lasix] 20 mg PO DAILY Discontinued Dexamethasone [Decadron] 4 mg PO BID Discharge Medication List ALPRAZolam [Xanax] 0.5 mg PO BID PRN 01/16/18 [History] Ascorbic Acid [Vitamin C] 1,000 mg PO DAILY 09/01/18 [History] Multivitamins, Thera [Multivitamin (formulary)] 1 tab PO DAILY 09/01/18 [History] Turmeric Root Extract [Turmeric] 500 mg PO DAILY 09/01/18 [History] Ubidecarenone [Co Q-10] 100 mg PO DAILY 09/01/18 [History] carvediloL [Coreg] 6.25 mg PO BID 09/01/18 [History] Baclofen 10 mg PO BID PRN 06/06/21 [History] Cholecalciferol [Vitamin D3 (25 Mcg = 1000 Iu)] 25 mcg PO DAILY 06/06/21 [History] Furosemide [Lasix] 20 mg PO DAILY 06/06/21 [History] Levothyroxine Sodium [Synthroid] 50 mcg PO DAILY 06/06/21 [History] Potassium Chloride [Klor-Con 10 ER] 10 meq PO DAILY 06/06/21 [History] Rosuvastatin Calcium [Crestor] 5 mg PO DAILY 06/06/21 [History] guaiFENesin-Coden 100-10MG/5ML [Robitussin AC] 10 ml PO Q4H PRN 06/06/21 [History] hydrALAZINE HCL 25 mg PO BID 06/06/21 [History] Apixaban [Eliquis] 5 mg PO BID 30 Days #60 tab 06/08/21 [Rx] Follow up Appointment(s)/Referral(s): Héctor Purcell MD [Primary Care Provider] - 1-2 days Activity/Diet/Wound Care/Special Instructions: Activity as tolerated Heart healthy Discharge Disposition: HOME SELF-CARE
--- NOTE | 2021-06-10 09:00 | ECHOS ---
STRESS ECHOCARDIOGRAM INDICATIONS: Chest pain BASELINE HEART RATE: 56 BASELINE BLOOD PRESSURE: 140/64 MAXIMUM HEART RATE: 125 MAXIMUM BLOOD PRESSURE: 215/57 85% MPHR: 120 100% MPHR: 141 METS: 7.5 MAXIMUM STAGE REACHED: 3 TOTAL EXERCISE TIME: 6:19 CLINICAL INFORMATION: Baseline EKG revealed normal sinus rhythm without significant ST-T changes. Patient walked on a standard Toi protocol for 6 minutes 19 seconds and achieved a maximal heart rate of 125 beats per minute. However, by the time images were obtained, the heart rate came down somewhat quickly. Patient did not have angina. She had some shortness of breath and fatigue. EKG did not reveal any ST-segment changes to indicate ischemia. This is a negative stress test with fair exercise capacity with a lot of artifact. Baseline echo images revealed normal wall motion and wall thickening of all segments. By the time stress images were obtained, patient's heart rate already dropped close to 100. However, there was good augmentation of left ventricular wall motion and wall thickening of all segments, suggesting that there is no evidence of any stress-induced ischemia on this study. FINAL IMPRESSION: 1. Limited exercise capacity with a negative stress test by EKG criteria with some baseline artifact. No angina or arrhythmia. 2. Normal stress echocardiogram, even though heart rate came down quickly after the end of exercise and prior to images being obtained. However, this is a negative stress echocardiogram with fair exercise capacity. MMODL / IJN: [id number] /
== END 2021-06-08 13:57 | disposition home or self-care (01) ==
LOC: EC 15:48 → 6NMEDSUR 19:46
PROVIDERS: ADMIT Internal Medicine; ATTEND Internal Medicine
DX: R07.89 Other chest pain (principal); I74.9 Embolism and thrombosis of unspecified artery; I10 Essential (primary) hypertension; Z86.16 Personal history of COVID-19; Z20.822 Contact with and (suspected) exposure to COVID-19; M71.21 Synovial cyst of popliteal space [Baker], right knee; E78.5 Hyperlipidemia, unspecified; E03.9 Hypothyroidism, unspecified; K57.90 Diverticulosis of intestine, part unspecified, without perforation or abscess without bleeding; E78.00 Pure hypercholesterolemia, unspecified; D68.51 Activated protein C resistance; F41.9 Anxiety disorder, unspecified; Z79.890 Hormone replacement therapy; Z79.899 Other long term (current) drug therapy; Z79.01 Long term (current) use of anticoagulants; Z79.82 Long term (current) use of aspirin; Z88.1 Allergy status to other antibiotic agents; Z88.2 Allergy status to sulfonamides; Z90.49 Acquired absence of other specified parts of digestive tract; Z98.891 History of uterine scar from previous surgery; Z80.1 Family history of malignant neoplasm of trachea, bronchus and lung; Z80.42 Family history of malignant neoplasm of prostate; Z80.8 Family history of malignant neoplasm of other organs or systems
CPT/HCPCS: 99285; 96372; 36415; 93005; 93351; 85379; 80061; 80053 ×2; 83735; 84484; 85025 ×2; 85610; 85730; 83721; 87635; 93970; 71275; G0378 ×3; J1650; Q9967

== ENCOUNTER → 2021-06-26 | Outpatient (CLI) | payer MEDICARE, BC ==
--- NOTE | 2021-06-26 08:33 | US ---
EXAMINATION TYPE: US renal artery duplex complet DATE OF EXAM: 06/26/2021 COMPARISON: NONE CLINICAL HISTORY: I10 Hypertension. uncontrolled HTN. MEASUREMENTS: RENAL SIZE: Rt Kidney: 10.8 x 4.6 x 6.0 cm Lt Kidney: 11.2 x 5.1 x 5.1 cm RESISTANCE INDEX Right: 0.59 Left: 0.59 RA/AO RATIO (< 3.5 ) Right: 2.0 Left: 2.0 RA VELOCITY ( < 180 cm/s) Right: 189 Left: 189 Small exophytic cyst left kidney measures 1.1 x 1.0 x 1.2 cm. Small amount of fluid in right renal pe lvis. Mildly elevated distal renal arteries bilaterally. Good upstroke on segmentals at renal hilum. IMPRESSION: No sonographic evidence for renal artery stenosis at this time. Mildly elevated distal renal artery v elocities bilaterally.
== END | disposition home or self-care (01) ==
LOC: RADUSWWP 06:57
PROVIDERS: ATTEND Internal Medicine
DX: I10 Essential (primary) hypertension (principal)
CPT/HCPCS: 93975

== ENCOUNTER → 2021-08-15 | Outpatient (CLI) | payer MEDICARE, BC ==
--- NOTE | 2021-08-15 14:19 | US ---
EXAMINATION TYPE: US transvaginal DATE OF EXAM: 08/15/2021 COMPARISON: NONE CLINICAL HISTORY: R10.9 ABD AND PELVIC PAIN. TECHNIQUE: Transvaginal (TV). Patient unable to fill bladder for abdominal. Date of LMP: Patient postmenopausal EXAM MEASUREMENTS: Uterus: 6.0 x 2.2 x 3.1 cm Endometrial Stripe: 0.2 cm Right Ovary: Obscured by overlying bowel gas/atrophy Left Ovary: Obscured by overlying bowel gas/atrophy 1. Uterus: Extensive calcifications somewhat limiting visualization, nabothian cysts are suspected wi thin the cervix 2. Endometrium: wnl as seen, partially obscured likely due to atrophic uterus 3. Right Ovary: Obscured by overlying bowel gas/atrophy 4. Left Ovary: Obscured by overlying bowel gas/atrophy 5. Bilateral Adnexa: wnl 6. Posterior cul-de-sac: minimal amount of free fluid inferior to cervix IMPRESSION: Post menopausal findings are suspected. Limited evaluation.
== END | disposition home or self-care (01) ==
LOC: RADUSWWP 11:10
PROVIDERS: ATTEND Internal Medicine
DX: N83.312 Acquired atrophy of left ovary (principal); N83.311 Acquired atrophy of right ovary
CPT/HCPCS: 76830

== ENCOUNTER → 2021-09-12 | Outpatient (CLI) | payer MEDICARE, BC ==
[2021-09-12 18:34] LABS: Creatine Kinase 90 U/L (26-186); Rheumatoid Factor, Qnt <10 IU/mL (0-15)
== END | disposition home or self-care (01) ==
LOC: LABWHC1 12:02
PROVIDERS: ATTEND Psychiatry & Neurology Neurology
DX: M79.10 Myalgia, unspecified site (principal); R53.1 Weakness; E55.9 Vitamin D deficiency, unspecified
CPT/HCPCS: 36415; 82306; 82550; 82607; 83090; 85652; 86038; 86039; 86431

== ENCOUNTER → 2021-10-22 | Outpatient (CLI) | payer MEDICARE, BC ==
--- NOTE | 2021-10-22 18:23 | US ---
EXAMINATION TYPE: US venous doppler duplex LE RT DATE OF EXAM: 10/22/2021 10:13 AM COMPARISON: US 2021 CLINICAL HISTORY: 81-year-old female DVT of Lower right extremity I82.591. History of right leg DVT, patient on blood thinners SIDE PERFORMED: Right TECHNIQUE: The lower extremity deep venous system is examined utilizing real time linear array sonog amena with graded compression, doppler sonography and color-flow sonography. VESSELS IMAGED: Common Femoral Vein Deep Femoral Vein Greater Saphenous Vein * Femoral Vein Popliteal Vein Small Saphenous Vein * Proximal Calf Veins (* superficial vessels) Right Leg: Appears negative for DVT Right popliteal fossa: 5.1 x 1.7 x 2.6cm complex Holden's cyst IMPRESSION: 1. No evidence for DVT within the right lower extremity imaged from the groin to the upper calf. 2. Moderate sized complex Holden's cyst measuring up to 5.1 cm.
== END | disposition home or self-care (01) ==
LOC: RADUSWWP 09:48
PROVIDERS: ATTEND Internal Medicine Hematology & Oncology
DX: I82.591 Chronic embolism and thrombosis of other specified deep vein of right lower extremity (principal)

== ENCOUNTER → 2022-01-13 | Outpatient (CLI) | payer MEDICARE, BC ==
--- NOTE | 2022-01-13 15:12 | XR ---
EXAMINATION TYPE: XR Hip Complete LT DATE OF EXAM: 01/13/2022 CLINICAL HISTORY: pain TECHNIQUE: Two views of the left femur are obtained. COMPARISON: None. FINDINGS: There is no acute fracture or dislocation seen of the femur. The hip and knee joints willa ear within normal limits. The overlying soft tissue appears unremarkable. IMPRESSION: There is no acute fracture or dislocation seen of the femur. ICD 10 NO FRACTURE, INITIAL EVALUATION
== END | disposition home or self-care (01) ==
LOC: RADXRMAIN 14:55
PROVIDERS: ATTEND Internal Medicine
DX: M25.552 Pain in left hip (principal); W19.XXXA Unspecified fall, initial encounter
CPT/HCPCS: 73502

== ENCOUNTER → 2022-01-28 | Outpatient (CLI) | payer MEDICARE, BC ==
--- NOTE | 2022-01-29 01:58 | MR ---
EXAMINATION TYPE: MR hip LT wo con DATE OF EXAM: 01/28/2022 COMPARISON: None HISTORY: Contusion L thigh, fall Multiplanar multiecho imaging of the pelvis and left hip with no contrast. The pelvic ring appears intact. Sacroiliac joints appear normal. No free fluid in the pelvis. Bladder distends smoothly. No sign of a pelvic mass. The sacroiliac joints are intact. The proximal femurs are intact. There is normal signal pattern. No evidence of avascular necrosis. On the T2 images there is abnormal increased fluid signal at the lateral aspect of the left ischium i s area measures 3 x 2 cm. There are some fluid stranding in the posterior musculature in the biceps f emoris muscle the gluteal muscles appear intact. No evidence of ischial fracture. IMPRESSION: No fracture. There is evidence of biceps tendon tear at the left ischium. There is fluid and edema. Normal left hip joint. No evidence of avascular necrosis.
--- NOTE | 2022-01-29 02:04 | MR ---
EXAMINATION TYPE: MR femur/thigh LT wo con DATE OF EXAM: 01/28/2022 COMPARISON: None HISTORY: Contusion L thigh, fall Multiplanar multiecho imaging of the left femur performed with no contrast. Femur appears intact. No fracture seen. There is some narrowing of the medial joint spaces of both kn ees. There is some mild bilateral lateral tibial subluxation. There is spurring of the femoral and ti bial condyles. There is small knee joint effusion. There is 4.5 x 2.5 cm complex fluid collection in the posterior left upper thigh extending up to the ischial tubercle and consistent with biceps tendon tear and hematoma. The subcutaneous tissues are intact. No evidence of focal bone destruction. IMPRESSION: There is evidence of biceps femoris tendon tear with intramuscular hematoma. No fracture seen. 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 Left knee joint effusion and popliteal cyst.
== END | disposition home or self-care (01) ==
LOC: RADMRIMAIN 06:17
PROVIDERS: ATTEND Internal Medicine
DX: S70.12XA Contusion of left thigh, initial encounter (principal); Z91.81 History of falling; X58.XXXA Exposure to other specified factors, initial encounter

== ENCOUNTER → 2022-04-14 | Outpatient (CLI) | payer MEDICARE, BC ==
--- NOTE | 2022-04-15 18:48 | MM ---
Reason for Exam: Screening (asymptomatic). Last mammogram was performed 1 year(s) and 1 month(s) ago. Patient History: Menarche at age 15. First Full-Term at age 27. Postmenopausal. Patient used Hormonal Contraceptives for 1 year. 06/18/2010, Benign Core Biopsy on the right side. Maternal cousin had breast cancer, age 55. Paternal aunt had breast cancer, age 70. Paternal aunt had breast cancer, age 75. Risk Values: Chiquita 5 year model risk: 2.2%. NCI Lifetime model risk: 3.3%. Prior Study Comparison: 05/29/2016 Screening Mammogram, [facility]. 12/14/2019 Bilateral Screening Mammogram, [facility]. 02/22/2021 Bilateral Screening Mammogram, [facility]. Tissue Density: There are scattered fibroglandular densities. Findings: Analyzed By CAD. Scattered benign calcifications are present. No significant interval changes are evident. No suspicious groups of microcalcifications, spiculated or lobular masses, architectural distortion or other secondary signs of malignancy are mammographically apparent. Overall Assessment: Benign, BI-RAD 2 Management: Screening Mammogram of both breasts in 1 year. A negative mammogram report should not preclude additional follow up of suspicious palpable abnormalities. Patient should continue monthly self breast exam. A clinical breast exam by your physician is recommended on an annual basis and results should be correlated with mammographic findings. Electronically signed and approved by: Jalil Price D.O. Radiologis
== END | disposition home or self-care (01) ==
LOC: RADMAMWWP 13:44
PROVIDERS: ATTEND Internal Medicine
DX: Z12.31 Encounter for screening mammogram for malignant neoplasm of breast (principal); Z78.0 Asymptomatic menopausal state; Z80.3 Family history of malignant neoplasm of breast; Z98.890 Other specified postprocedural states
CPT/HCPCS: 77063; 77067

== ENCOUNTER → 2023-09-23 | Outpatient (CLI) | payer MEDICARE, BC ==
--- NOTE | 2023-09-23 14:05 | US ---
EXAMINATION TYPE: US venous doppler duplex LE DATE OF EXAM: 09/23/2023 1:23 PM COMPARISON: CLINICAL INDICATION: Female, 83 years old with history of M79.662 PAIN IN LLE M79.661 PAIN IN RLE; Le g discomfort. Patient states having hx right DVT. No redness or swelling. No injury. Not on blood thinners. SIDE PERFORMED: Bilateral TECHNIQUE: The lower extremity deep venous system is examined utilizing real time linear array sonog amena with graded compression, doppler sonography and color-flow sonography. VESSELS IMAGED: Common Femoral Vein Deep Femoral Vein Greater Saphenous Vein * Femoral Vein Popliteal Vein Small Saphenous Vein * Proximal Calf Veins (* superficial vessels) Right Leg: Negative for DVT Left Leg: Negative for DVT. Posterior knee fluid collection - 4.9 x 2.4 x 1.5 cm IMPRESSION: Grayscale, color doppler, spectral doppler imaging performed of the deep veins of the lo wer extremities. There is normal flow, compressibility, vascular waveforms. No evidence of deep venous thrombosis in the bilateral lower extremities.
== END | disposition home or self-care (01) ==
LOC: RADUSWWP 13:00
PROVIDERS: ATTEND Internal Medicine
DX: M79.662 Pain in left lower leg (principal); M79.661 Pain in right lower leg; Z86.718 Personal history of other venous thrombosis and embolism
CPT/HCPCS: 93970

== ENCOUNTER → 2023-09-30 | Outpatient (CLI) | payer MEDICARE, BC | END | disposition home or self-care (01) | LOC: RADUSWWP 08:00 | PROVIDERS: ATTEND Internal Medicine | DX: Z53.9 Procedure and treatment not carried out, unspecified reason (principal) ==

== ENCOUNTER → 2023-09-30 | Outpatient (CLI) | payer MEDICARE, BC ==
--- NOTE | 2023-09-30 16:46 | US ---
EXAMINATION TYPE: US Aorta Screening DATE OF EXAM: 09/30/2023 COMPARISON: 2021 US renal artery CLINICAL INDICATION: Female, 83 years old with history of R10.84 ABD PAIN; TECHNIQUE: Multiple sonographic images of the abdominal aorta are obtained. FINDINGS: EXAM MEASUREMENTS: Abdominal Aorta: Proximal: 2.4 x 2.0 Mid: 2.1 x 1.7 Distal: 1.3 x 1.5 Bifurcation: Right Iliac: 1.0 x 0.8 Left Iliac: 1.1 x 0.8 SENSOR TECHNICIAN NOTES: No evidence of AAA; plague noted throughout IMPRESSION: 1. No ultrasound evidence for abdominal aortic aneurysm. 2. Atherosclerotic plaque noted throughout the visualized abdominal aorta.
--- NOTE | 2023-10-01 18:37 | MM ---
Reason for Exam: Screening (asymptomatic). Last mammogram was performed 1 year(s) and 6 month(s) ago. Patient History: Menarche at age 15. First Full-Term at age 27. Postmenopausal. Patient used Hormonal Contraceptives for 1 year. 06/18/2010, Benign Core Biopsy on the right side. Maternal cousin had breast cancer, age 55. Paternal aunt had breast cancer, age 70. Paternal aunt had breast cancer, age 75. Risk Values: Chiquita 5 year model risk: 2.1%. NCI Lifetime model risk: 3.1%. Prior Study Comparison: 12/14/2019 Bilateral Screening Mammogram, [facility]. 02/22/2021 Bilateral Screening Mammogram, [facility]. 04/14/2022 Bilateral MG 3D screening mammo w/cad, [facility]. Tissue Density: The breasts are heterogeneously dense, which may obscure small masses. Findings: Analyzed By CAD. Unchanged asymmetric density central inner aspect of the right breast posterior depth. Microclip right breast from prior biopsy. A few scattered benign round and well-seated calcifications are redemonstrated on both sides. There is no suspicious group of microcalcifications or new suspicious mass in either breast. Overall Assessment: Benign, BI-RAD 2 Management: Screening Mammogram of both breasts in 1 year. . Patient should continue monthly self-breast exams. A clinical breast exam by your physician is recommended on an annual basis. This exam should not preclude additional follow-up of suspicious palpable abnormalities. Note on Chqiuita scores and lifetime risk: 1. A Chiquita score greater than 3% is considered moderate risk. If this is the case, consider specialist referral to assess eligibility for a risk reducing agent. 2. If overall lifetime risk for the development of breast cancer is 20% or higher, the patient may qualify for future screening with alternating mammogram and breast MRI. Electronically signed and approved by: Ishaan Enciso M.D. Radiologist
== END | disposition home or self-care (01) ==
LOC: RADMAMWWP 07:39
PROVIDERS: ATTEND Internal Medicine
DX: Z12.31 Encounter for screening mammogram for malignant neoplasm of breast (principal); I70.0 Atherosclerosis of aorta; Z78.0 Asymptomatic menopausal state; Z80.3 Family history of malignant neoplasm of breast
CPT/HCPCS: 76706; 77063; 77067

== ENCOUNTER 2024-09-28 16:46 | Emergency (ER) | payer MEDICARE, BC ==
--- NOTE | 2024-09-28 17:09 | ED ---
Extremity Problem HPI - General Chief complaint: Extremity Problem,Nontraumatic Stated complaint: blood clot R leg Time Seen by Provider: 09/28/24 17:00 Source: patient, RN notes reviewed Mode of arrival: ambulatory Limitations: no limitations - History of Present Illness Initial comments: This is an 84-year-old female who presents to the emergency department for a blood clot in her right leg. Patient fell a week ago and developed bruising and discoloration to the right leg. She had an outpatient ultrasound done, which she was advised was positive for a DVT and she was sent directly here from the ultrasound. She is also scheduled for an MRI this evening of that leg to look for any soft tissue damage. Denies any chest pain or shortness of breath. 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 - Related Data Home Medications Medication Instructions Recorded Confirmed ALPRAZolam [Xanax] 0.5 mg PO BID PRN 01/16/18 06/06/21 Ascorbic Acid [Vitamin C] 1,000 mg PO DAILY 09/01/18 06/06/21 Multivitamins, Thera [Multivitamin 1 tab PO DAILY 09/01/18 06/06/21 (formulary)] Turmeric Root Extract [Turmeric] 500 mg PO DAILY 09/01/18 06/06/21 Ubidecarenone [Co Q-10] 100 mg PO DAILY 09/01/18 06/06/21 carvediloL [Coreg] 6.25 mg PO BID 09/01/18 06/06/21 Baclofen 10 mg PO BID PRN 06/06/21 06/06/21 Cholecalciferol [Vitamin D3 (25 25 mcg PO DAILY 06/06/21 06/06/21 Mcg = 1000 Iu)] Furosemide [Lasix] 20 mg PO DAILY 06/06/21 06/06/21 Levothyroxine Sodium [Synthroid] 50 mcg PO DAILY 06/06/21 06/06/21 Potassium Chloride [Klor-Con 10 ER] 10 meq PO DAILY 06/06/21 06/06/21 Rosuvastatin Calcium [Crestor] 5 mg PO DAILY 06/06/21 06/06/21 guaiFENesin-Coden 100-10MG/5ML 10 ml PO Q4H PRN 06/06/21 06/06/21 [Robitussin AC] hydrALAZINE HCL 25 mg PO BID 06/06/21 06/06/21 Previous Rx's Medication Instructions Recorded Apixaban [Eliquis] 5 mg PO BID 30 Days #60 tab 06/08/21 Apixaban [Eliquis Starter Pack 5 - 10 mg PO DIRECTED 30 Days 09/28/24 (for VTE)] #1 each Allergies Allergy/AdvReac Type Severity Reaction Status Date / Time levofloxacin [From Levaquin] Allergy Swelling Verified 09/28/24 16:58 metronidazole [From Flagyl] Allergy Swelling Verified 09/28/24 16:58 Sulfa (Sulfonamide Allergy Swelling Verified 09/28/24 16:58 Antibiotics) Review of Systems ROS Statement: Those systems with pertinent positive or pertinent negative responses have been documented in the HPI. ROS Other: All systems not noted in ROS Statement are negative. Past Medical History Past Medical History: Hyperlipidemia, Hypertension, Thyroid Disorder Additional Past Medical History / Comment(s): irregular heartbeat, factor V,divertculitis,anxiety History of Any Multi-Drug Resistant Organisms: None Reported Past Surgical History: Section, Cholecystectomy Additional Past Surgical History / Comment(s): 2 - c sections, cataract surgery Past Anesthesia/Blood Transfusion Reactions: No Reported Reaction Past Psychological History: Anxiety Smoking Status: Never smoker Past Alcohol Use History: Rare Past Drug Use History: None Reported - Past Family History Father Family Medical History: Cancer Additional Family Medical History / Comment(s): lung and prostate cancer Mother Additional Family Medical History / Comment(s): brain tumor General Exam Limitations: no limitations General appearance: alert, in no apparent distress Head exam: Present: atraumatic, normocephalic, normal inspection Respiratory exam: Present: normal lung sounds bilaterally. Absent: respiratory distress, wheezes, rales, rhonchi, stridor Cardiovascular Exam: Present: regular rate, normal rhythm Extremities exam: Present: other (Generalized swelling, ecchymosis, and tenderness to the right lower extremity. Full range of motion. 2+ DP and PT pulses) Neurological exam: Present: alert, oriented X3, CN II-XII intact Psychiatric exam: Present: normal affect, normal mood Course Vital Signs 09/28/24 09/28/24 16:55 18:50 Temperature 98.2 F 98.8 F Pulse Rate 64 60 Respiratory 22 18 Rate Blood Pressure 176/89 158/75 O2 Sat by Pulse 98 98 Oximetry Medical Decision Making - Medical Decision Making This is an 84-year-old female who presents to the emergency department for right leg pain and swelling. Was pt. sent in by a medical professional or institution? @ -No Did you speak to anyone other than the patient for history? @ -No Did you review nursing and triage notes? @ -Yes, and I agree, it is accurate with regards to the patient's symptoms. Were old charts reviewed? @ -Duplex ultrasound of the right lower extremity obtained earlier today which was positive for a DVT in the distal popliteal vein and proximal posterior tib ial vein. Differential Diagnosis? @ -Differential Musculoskeletal Muscular strain, contusion, ligament sprain, fracture, arthritis, septic arthritis, bursitis, cellulitis, muscle spasm, nerve compression, DVT, arterial occlusion, herpes zoster, electrolyte abnormality, tumor.... This is not meant to be in all inclusive list EKG interpreted by me (3pts min.)? @ -Not obtained X-rays interpreted by me (1pt min.)? @ -Not obtained CT interpreted by me (1pt min.)? @ -Not obtained U/S interpreted by me (1pt. min.)? @ -Not obtained What testing was considered but not performed? (CT, X-rays, U/S, labs)? Why? @ -None What meds were considered but not given? Why? @ -None Did you discuss the management of the patient with other professionals? @ -No Did you reconcile home meds? @ -No Was smoking cessation discussed for >3mins.? @ -No Was critical care preformed (if so, how long)? @ -No Were there social determinants of health that impacted care today? How? (Homelessness, low income, unemployed, alcoholism, drug addiction, transportation, low edu. Level, literacy, decrease access to med. care, [facility], rehab)? @ -No Was there de-escalation of care discussed even if they declined? (Discuss DNR or withdrawal of care, Hospice)? @ -No What co-morbidities impacted this encounter? (DM, HTN, Smoking, COPD, CAD, Cancer, CVA, Hep., AIDS, mental health diagnosis, sleep apnea, morbid obesity)? @ -HLD, HTN Was patient admitted / discharged? @ -Discharged. Patient had an outpatient ultrasound earlier today revealing a DVT in the distal popliteal vein extending to the posterior tibial vein. She did not have any chest pain or shortness of breath. Eliquis starter pack prescribed for management of the DVT. Eliquis savings card provided as well. Patient advised that she needs to follow back up with her PCP for reevaluation and discussion of further anticoagulation. Patient discharged home in stable condition with strict return parameters. Case discussed with ED attending Dr. Del Rio. Return precautions reviewed in depth, the patient is instructed to return to the emergency department with any new, worsening, or concerning symptoms. Patient verbalized understanding. Undiagnosed new problem with uncertain prognosis? @ -None Drug Therapy requiring intensive monitoring for toxicity (Heparin, Nitro, Insulin, Cardizem)? @ -None Were any procedures done? @ -None Diagnosis/symptom? @ -DVT right leg Acute, or Chronic, or Acute on Chronic? @ -Acute Uncomplicated (without systemic symptoms) or Complicated (systemic symptoms)? @ -Uncomplicated Side effects of treatment? @ -None Exacerbation, Progression, or Severe Exacerbation] @ -Not applicable Poses a threat to life or bodily function? @ -No - Radiology Data Radiology results: report reviewed, image reviewed Disposition Clinical Impression: Right leg DVT Disposition: HOME SELF-CARE Instructions (If sedation given, give patient instructions): Apixaban (By mouth), Deep Vein Thrombosis (ED) Additional Instructions: Return to the emergency department with any new, worsening, or concerning symptoms. Begin taking the Eliquis as prescribed. Follow up with your primary care provider in 1-2 days. Prescriptions: Apixaban [Eliquis Starter Pack (for VTE)] 5 - 10 mg PO DIRECTED 30 Days #1 each Is patient prescribed a controlled substance at d/c from ED?: No Referrals: Héctor Purcell MD [Primary Care Provider] - 1-2 days Time of Disposition: 18:45
[2024-09-28 18:52] VITALS: BP 158/75; PULSE 60; RESP 18; TEMP 98.8
== END 2024-09-28 18:52 | disposition home or self-care (01) ==
LOC: EC 16:46
DX: I82.441 Acute embolism and thrombosis of right tibial vein (principal); I10 Essential (primary) hypertension; E78.5 Hyperlipidemia, unspecified; Z88.1 Allergy status to other antibiotic agents; Z88.2 Allergy status to sulfonamides
CPT/HCPCS: 99283

== ENCOUNTER → 2024-09-28 | Outpatient (CLI) | payer MEDICARE, BC ==
--- NOTE | 2024-09-29 06:56 | MR ---
EXAMINATION TYPE: MR hip RT wo con DATE OF EXAM: 09/28/2024 7:48 PM COMPARISON: None. CLINICAL INDICATION: Female, 84 years old with history of M25.551 PAIN IN RIGHT HIP, Fall on Sep 18 2024, Right hip pain, swelling, limited movement, hematoma. IV Contrast: cc (None if empty) Standard multiplanar, multisequence MRI departmental protocol Multiplanar, multisequence images of the pelvis focusing on the right hip were acquired without contr ast. Diffusion weighted imaging was performed. FINDINGS: Symmetric moderate to severe axial joint space loss and mild to moderate acetabular spurrin g. There are small to tiny left greater than right hip joint effusions favored physiologic. Femoral h ead shapes are maintained bilaterally. No serpiginous diminished T1 signal to suggest avascular necro sis in either femoral head. No suspicious increased T2 signal to suggest abnormal osseous edema. Ther e is ill-defined heterogeneous fluid or blood product lateral aspect of the right hip extending from the level of the mid iliac bone roughly mid diaphyseal level measuring near 20 cm in length. In addit ion there is ill-defined heterogeneous fluid in the muscles near insertion at the greater trochanter on the right hip. There is at least partial tearing of insertional fibers at this level. No groin her marv or adenopathy is seen. Distal colonic diverticulosis is present. There is anteverted uterus projecting to the right of midli ne with 2 small adjacent intramural fibroids. There are nabothian cysts in the cervix. No free fluid in the pelvis is present IMPRESSION: There is a fairly large lateral ill-defined and more focal deep soft tissue hematoma centered at the level of the right hip with additional abnormal fluid or hematoma involving right lateral thigh muscl es and thought partial tearing of insertional tendon tear level of the greater trochanter right hip. Background Moderate degenerative changes are present. [facility], , 09/29/2024 6:54 AM
== END | disposition home or self-care (01) ==
LOC: RADMRIMAIN 18:54
PROVIDERS: ATTEND Internal Medicine
DX: M16.11 Unilateral primary osteoarthritis, right hip (principal); S76.011A Strain of muscle, fascia and tendon of right hip, initial encounter

== ENCOUNTER → 2024-09-28 | Outpatient (CLI) | payer MEDICARE, BC ==
--- NOTE | 2024-09-28 18:35 | US ---
EXAMINATION TYPE: US venous doppler duplex LE RT DATE OF EXAM: 09/28/2024 4:36 PM COMPARISON: US 09/23/23 CLINICAL INDICATION: Female, 84 years old with history of M79.661 PAIN IN RIGHT LOWER LEG; fall last week, pain and edema, factor 5, Hx DVT right leg, not on thinners, Pain TECHNIQUE: The lower extremity deep venous system is examined utilizing real time linear array sonog amena with graded compression, color doppler sonography, and spectral doppler. SIDE PERFORMED: Right FINDINGS: VESSELS IMAGED: Common Femoral Vein Deep Femoral Vein Greater Saphenous Vein * Femoral Vein Popliteal Vein Small Saphenous Vein * Proximal Calf Veins (* superficial vessels) Right Leg: Positive for DVT, hypoechoic thrombus in the distal popliteal vein and one proximal poste rior tibial vein the remainder of the structures demonstrate Color Doppler imaging shows patency of the vessels. Spect ral waveforms are within normal limits. IMPRESSION: Deep vein thrombosis within the distal popliteal vein extending into one of the posterior tibial vein s. Findings communicated to Héctor Purcell MD on 09/28/2024 5:[address] Andreas Mccrary. [facility], , 09/28/2024 6:33 PM
== END | disposition home or self-care (01) ==
LOC: RADUSWWP 16:06
PROVIDERS: ATTEND Internal Medicine
DX: I82.441 Acute embolism and thrombosis of right tibial vein (principal)

== ENCOUNTER → 2024-12-16 | Outpatient (CLI) | payer MEDICARE, BC ==
--- NOTE | 2024-12-16 20:30 | MM ---
Reason for Exam: Screening (asymptomatic). Last mammogram was performed 1 year(s) and 3 month(s) ago. Patient History: Menarche at age 15. First Full-Term at age 27. Postmenopausal. Patient used Hormonal Contraceptives for 1 year. 06/18/2010, Benign Core Biopsy on the right side. Maternal cousin had breast cancer, age 55. Paternal aunt had breast cancer, age 70. Paternal aunt had breast cancer, age 75. Risk Values: Chiquita 5 year model risk: 2.1%. NCI Lifetime model risk: 2.7%. Prior Study Comparison: 02/22/2021 Bilateral Screening Mammogram, [facility]. 04/14/2022 Bilateral MG 3D screening mammo w/cad, [facility]. 09/30/2023 Bilateral MG 3D screening mammo w/cad, [facility]. Tissue Density: The breasts are heterogeneously dense, which may obscure small masses. Findings: Analyzed By CAD. Benign bilateral vascular and round calcifications redemonstrated. Microclip anterior right breast from prior biopsy. There is no suspicious group of microcalcifications or new suspicious mass in either breast. Overall Assessment: Benign, BI-RAD 2 Management: Screening Mammogram of both breasts in 1 year. Patient should continue monthly self-breast exams. A clinical breast exam by your physician is recommended on an annual basis. This exam should not preclude additional follow-up of suspicious palpable abnormalities. Note on Chiquita scores and lifetime risk: 1. A Chiquita score greater than 3% is considered moderate risk. If this is the case, consider specialist referral to assess eligibility for a risk reducing agent. 2. If overall lifetime risk for the development of breast cancer is 20% or higher, the patient may qualify for future screening with alternating mammogram and breast MRI. [facility], , 12/16/2024 8:27 PM. Electronically signed and approved by: Ishaan Enciso M.D. Radiologist
== END | disposition home or self-care (01) ==
LOC: RADMAMWWP 16:37
PROVIDERS: ATTEND Internal Medicine
DX: Z12.31 Encounter for screening mammogram for malignant neoplasm of breast (principal); R92.333 Mammographic heterogeneous density, bilateral breasts; R92.1 Mammographic calcification found on diagnostic imaging of breast; Z78.0 Asymptomatic menopausal state; Z80.3 Family history of malignant neoplasm of breast; Z92.0 Personal history of contraception
CPT/HCPCS: 77063; 77067